=== PATIENT | male | born 1960 | race Caucasian/White ===

== ENCOUNTER 2019-01-19 13:03 | Inpatient (IN) | payer SELFPAY ==
[~2019-01-19] VITALS: Ht 170.2 cm; Wt 68.9 kg
[2019-01-19 13:57] LABS: BASO % 0 % (0-3); EOS % 0 % (0-3); HEMATOCRIT 41.1 % (39.0-53.0); HEMOGLOBIN 14.4 g/dL (13.0-17.5); LYMPH # 1.3 x10^3/uL (1.0-4.8); LYMPH % 8 % (24-48); MEAN CORPUSCULAR HEMOGLOBIN 37 pg (25-35); MEAN CORPUSCULAR HGB CONC 35 g/dL (31-37); MEAN CORPUSCULAR VOLUME 104 fL (79-100); MONO # 1.3 x10^3/uL (0.0-1.1); MONO % 7 % (0-9); NEUT % 85 % (31-73); PLATELET COUNT 186 x10^3/uL (140-400); RED BLOOD COUNT 3.95 x10^6/uL (4.30-5.70); RED CELL DISTRIBUTION WIDTH 12.5 % (11.5-14.5); WHITE BLOOD COUNT 17.7 x10^3/uL (4.0-11.0)
[2019-01-19] MEDS ORDERED: VANCOMYCIN 1.75 GM in IV NORMAL SALINE 500ML BAG 500 ML IV ONE (14:00)
[2019-01-19 14:06] LABS: CALCIUM 9.5 mg/dL (8.5-10.1); CREATININE 1.1 mg/dL (0.7-1.3); GFR 68.3
--- NOTE | 2019-01-19 14:06 | RAD ---
Examination: ELBOW LEFT 3V History: Pain Comparison/Correlation: None Findings: Three-view x-ray examination left elbow was performed in portable technique. Spurring about the elbow is evident. No fat-pad displacement to suggest joint effusion. No occult fracture identified. Joint spaces are adequate. Impression: No acute process. Electronically signed by: Boogie Solano MD (01/19/2019 2:03 PM) [facility]
--- NOTE | 2019-01-19 14:08 | PHYS DOC ---
Past Medical History Past Medical History: COPD Past Surgical History: Tonsillectomy Additional Past Surgical Histo: cyst removed from neck Additional Information: 2 ppd Alcohol Use: Heavy Additional Information: 3-4 beers every night Drug Use: None Adult General Chief Complaint Chief Complaint: UPPER EXTREMITY SWELLING HPI HPI 58-year-old male presenting the emergency department today with cellulitis transferred here by urgent care. This all started over the last 4 days. He's had worsening swelling over the past 1-2 days. Urgent care center here for IV antibiotics. The patient has swelling but denies having severe pain. He reports mild pain. He had a abrasion on the medial portion of his left arm which has since been draining with associated redness and swelling of the arm. Review of systems is negative for chest pain shortness of breath vomiting headache. All other review of systems is negative. ED course: 58-year-old male presenting the emergency department today with left upper shoulder cellulitis. No crepitus to palpation. X-ray of the elbow obtained and reviewed by myself shows no obvious signs of deeper joint or bone infection. Blood work obtained along with an order for IV vancomycin. White blood cell count is elevated. I spoke with Dr. alan accepts patient for admission. Current Medications Current Medications Current Medications Medications (Trade) Dose Ordered Sig/Alexis Start Time Stop Time Status Last Admin Dose Admin Vancomycin HCl (Vanco Per Pharmacy) 1 each PRN DAILY PRN 01/19/19 14:00 01/19/19 15:35 1 EACH Vancomycin HCl 1.75 gm/Sodium Chloride 500 ml @ 250 mls/hr 1X ONCE 01/19/19 14:00 01/19/19 15:59 DC 01/19/19 14:13 250 MLS/HR Allergies Allergies Allergies Coded Allergies Type Severity Reaction Last Updated Verified Penicillins Allergy Intermediate hives 01/20/16 Yes Physical Exam Physical Exam Constitutional: Well developed, well nourished, no acute distress, non-toxic appearance. HENT: Normocephalic, atraumatic, bilateral external ears normal, oropharynx moist, no oral exudates, nose normal. [] Eyes: PERRLA, EOMI, conjunctiva normal, no discharge. [] Neck: Normal range of motion, no tenderness, supple, no stridor. Cardiovascular:Heart rate regular rhythm, no murmur [] Lungs & Thorax: Bilateral breath sounds clear to auscultation [] Abdomen: Bowel sounds normal, soft, no tenderness, no masses, no pulsatile masses. Skin: Warm, dry, no erythema, no rash. [] Back: No tenderness, no CVA tenderness. [] Extremities: The patient's left upper extremity is mildly tender palpation. There is a localized swelling of the medial aspect of the left distal humerus area with active drainage of purulent fluid. There is associated cellulitis throughout the arm without crepitus to palpation. Minimal pain with passive range of motion of the joint. Palpable pulse distally with 2 second cap refill. Otherwise remainder of extremities are neurovascularly intact without any abnormalities. Neurologic: Alert and oriented X 3, normal motor function, normal sensory function, no focal deficits noted. [] Psychologic: Affect normal, judgement normal, mood normal. [] Current Patient Data Vital Signs Vital Signs Date Time Temp Pulse Resp B/P (MAP) Pulse Ox O2 Delivery O2 Flow Rate FiO2 01/19/19 14:17 97 20 146/89 (108) 96 Room Air 01/19/19 13:21 98.4 98.4 Lab Values Laboratory Tests Test 01/19/19 13:47 White Blood Count 17.7 x10^3/uL (4.0-11.0) H Red Blood Count 3.95 x10^6/uL (4.30-5.70) L Hemoglobin 14.4 g/dL (13.0-17.5) Hematocrit 41.1 % (39.0-53.0) Mean Corpuscular Volume 104 fL (79-100) H Mean Corpuscular Hemoglobin 37 pg (25-35) H Mean Corpuscular Hemoglobin Concent 35 g/dL (31-37) Red Cell Distribution Width 12.5 % (11.5-14.5) Platelet Count 186 x10^3/uL (140-400) Neutrophils (%) (Auto) 85 % (31-73) H Lymphocytes (%) (Auto) 8 % (24-48) L Monocytes (%) (Auto) 7 % (0-9) Eosinophils (%) (Auto) 0 % (0-3) Basophils (%) (Auto) 0 % (0-3) Neutrophils # (Auto) 15.0 x10^3/uL (1.8-7.7) H Lymphocytes # (Auto) 1.3 x10^3/uL (1.0-4.8) Monocytes # (Auto) 1.3 x10^3/uL (0.0-1.1) H Eosinophils # (Auto) 0.0 x10^3/uL (0.0-0.7) Basophils # (Auto) 0.0 x10^3/uL (0.0-0.2) Segmented Neutrophils % 70 % (35-66) H Band Neutrophils % 11 % (0-9) H Lymphocytes % 11 % (24-48) L Monocytes % 7 % (0-10) Basophils % 1 % (0-3) Toxic Granulation Slight Platelet Estimate Adequate (ADEQUATE) Sodium Level 136 mmol/L (136-145) Potassium Level 4.0 mmol/L (3.5-5.1) Chloride Level 101 mmol/L (98-107) Carbon Dioxide Level 25 mmol/L (21-32) Anion Gap 10 (6-14) Blood Urea Nitrogen 16 mg/dL (8-26) Creatinine 1.1 mg/dL (0.7-1.3) Estimated GFR (Cockcroft-Gault) 68.3 BUN/Creatinine Ratio 15 (6-20) Glucose Level 102 mg/dL (70-99) H Calcium Level 9.5 mg/dL (8.5-10.1) Total Bilirubin 1.7 mg/dL (0.2-1.0) H Aspartate Amino Transferase (AST) 15 U/L (15-37) Alanine Aminotransferase (ALT) 14 U/L (16-63) L Alkaline Phosphatase 88 U/L (46-116) Total Protein 7.1 g/dL (6.4-8.2) Albumin 3.4 g/dL (3.4-5.0) Albumin/Globulin Ratio 0.9 (1.0-1.7) L Laboratory Tests 01/19/19 13:47 Laboratory Tests 01/19/19 13:47 EKG EKG [] Radiology/Procedures Radiology/Procedures [] Course & Med Decision Making Course & Med Decision Making Pertinent Labs and Imaging studies reviewed. (See chart for details) [] Dragon Disclaimer Dragon Disclaimer This electronic medical record was generated, in whole or in part, using a voice recognition dictation system. Departure Departure Impression: Primary Impression: Cellulitis of arm, left Disposition: ADMITTED INPATIENT Condition: STABLE Referrals: NO PCP (PCP) Scripts No Active Prescriptions or Reported Meds ZEINAB BURROWS MD Jan 19, 2019 14:08
[2019-01-19 14:11] LABS: ALBUMIN 3.4 g/dL (3.4-5.0); ALBUMIN/GLOBULIN RATIO 0.9 (1.0-1.7); TOTAL BILIRUBIN 1.7 mg/dL (0.2-1.0); TOTAL PROTEIN 7.1 g/dL (6.4-8.2)
[2019-01-19 15:33] LABS: % BANDS 11 % (0-9); % BASOS 1 % (0-3); % LYMPHS 11 % (24-48); % MONOS 7 % (0-10); % SEGS 70 % (35-66)
[2019-01-19 15:35] LABS: PLT ESTIMATE ADEQUATE (ADEQUATE); TOXIC GRANULATION SLIGHT
[2019-01-19] MEDS: VANCOMYCIN PER PHARMACY MC PRN (15:35)
--- NOTE | 2019-01-19 15:38 | NUR ---
Pharmacy Vancomycin Dosing Note S:Consulted to monitor and dose vancomycin started 01/19/19. O:ABIDA DE LEON is a 58 year old M with Cellulitis Height: 5 feet, 7 inches Weight: 70.3 kg [place] Body Weight: 66.10 Adjusted Body Weight: 67.78 Dosing Weight: Actual Other Antibiotics: none LABS: Last BUN: 16 Last Creatinine: 1.1 Creatinine Clearance: 68 mL/min Last WBC: 17.7 Last Procalcitonin: Tmax (past 24 hours): 98.4 Last dose given 01/19/19 at 1400 Vancomycin Dosing: Loading Dose: 1750 mg x1 Dosing Weight: Actual Target Trough: 10-20 A: Based on: weight and renal function P: 1. Begin Vancomycin 1000 mg IV q12h 2. Follow up Trough level on 01/21/19 at 0430 3. Pharmacy will continue to monitor, follow and adjust therapy as needed. Sandra Barry RPH, 01/19/19 [id number]
[2019-01-19] MEDS ORDERED: PIP/TAZO PER PHARMACY MC PRN (17:00)
[2019-01-19] MEDS ORDERED: NICOTINE POLACRILEX 2MG GUM PACKAGE of 12. BC PRN (17:00)
[2019-01-19] MEDS ORDERED: NICOTINE 21MG PATCH. TD PRN (17:00)
[2019-01-19] MEDS ORDERED: AZTREONAM IV Push 2 GM VIAL. IVP SCH (17:15)
[2019-01-19] MEDS: AZTREONAM IV Push 1 GM VIAL. IVP SCH (18:14)
[2019-01-19 19:00] VITALS: BP 141/78
--- NOTE | 2019-01-19 19:10 | PDOC1 ---
History and Physical Date of Admission Date of Admission DATE: 01/19/19 TIME: 19:07 History of Present Illness History of Present Illness Mr. Cary is a 58-year-old male admit for left arm pain and swelling, started over the last 4 days. He's had worsening swelling over the past 2 days. Hew hammad to an urgent care today and was sent here. The patient has swelling - but is having severe pain. . He had a abrasion on the medial portion of his left arm he says he just had a "small bump" on the inside of the elbow 4 days ago, when he woke up, and didn't think much of it, but has gotten worse every day. Now, the area has been draining with associated redness and swelling of the ar m. Past Medical History Cardiovascular: No pertinent hx Pulmonary: COPD GI: No pertinent hx Heme/Onc: No pertinent hx Hepatobiliary: No pertinent hx Psych: No pertinent hx Musculoskeletal: Osteoarthritis Rheumatologic: No pertinent hx Infectious disease: No pertinent hx Renal/: No pertinent hx Endocrine: No pertinent hx Past Surgical History Past Surgical History: Tonsillectomy, Other Family History Family History: Heart Disease Social History Smoke: 2 packs per day ALCOHOL: none Drugs: None Current Problem List Problem List Problems Medical Problems: (1) Cellulitis of arm, left Status: Acute Current Medications Current Medications Current Medications Vancomycin HCl (Vanco Per Pharmacy) 1 each PRN DAILY PRN MC SEE COMMENTS Last administered on 01/19/19at 15:35; Start 01/19/19 at 14:00 Vancomycin HCl 1.75 gm/Sodium Chloride 500 ml @ 250 mls/hr 1X ONCE IV Last administered on 01/19/19at 14:13; Start 01/19/19 at 14:00; Stop 01/19/19 at 15:59; Status DC Vancomycin HCl 1 gm/Sodium Chloride 250 ml @ 250 mls/hr Q12H IV ; Start 01/20/19 at 05:00 Vancomycin HCl (Vancomycin Trough Level) 1 each 1X ONCE MC ; Start 01/21/19 at 04:30; Stop 01/21/19 at 04:31 Fentanyl Citrate (Fentanyl 2ml Vial) 50 mcg PRN Q2HR PRN IVP PAIN; Start 01/19/19 at 16:30 Oxycodone/ Acetaminophen (Percocet 5/325) 1 tab PRN Q4HRS PRN PO PAIN; Start 01/19/19 at 16:30 Nicotine (Nicoderm Cq 21mg) 1 patch PRN DAILY PRN TD SMOKING CESSATION; Start 01/19/19 at 17:00 Nicotine Polacrilex (Nicorette Gum) 1 each PRN Q1HR PRN BC SMOKING CESSATION; Start 01/19/19 at 17:00 Zolpidem Tartrate (Ambien) 5 mg PRN QHS PRN PO INSOMNIA, MAY REPEAT IN 1HR; Start 01/19/19 at 17:00 Piperacillin Sod/ Tazobactam Sod (Zosyn Per Pharmacy) 1 each PRN DAILY PRN MC SEE COMMENTS; Start 01/19/19 at 17:00; Stop 01/19/19 at 17:10; Status DC Aztreonam (Azactam) 2 gm Q8HRS IVP ; Start 01/19/19 at 17:15; Status UNV Aztreonam (Azactam) 1 gm Q8HRS IVP Last administered on 01/19/19at 18:14; Start 01/19/19 at 18:00 Active Scripts Active No Active Prescriptions or Reported Medications Allergies Allergies: Coded Allergies: Penicillins (Verified Allergy, Intermediate, hives, 01/20/16) ROS General: YES: Chills, Fatigue; No: Night Sweats, Malaise, Appetite, Other PSYCHOLOGICAL ROS: YES: Irritablity, Sleep disturbances; No: Anxiety, Behavioral Disorder, Concentration difficultie, Decreased libido, Depression, Disorientation, Hallucinations, Hostility, Memory difficulties, Mood Swings, Obsessive thoughts, Other Eyes: Yes Uses glasses; No Blurry vision, No Decreased vision, No Double vision, No Dry eyes, No Excessive tearing, No Eye Pain, No Itchy Eyes, No Loss of vision, No Photophobia, No Scotomata, No Uses contacts, No Other Respiratory: No: Cough, Hemoptysis, Orthopnea, Pleuritic Pain, Shortness of breath, SOB with excertion, Sputum Changes, Stridor, Tachypnea, Wheezing, Other Cardiovascular: No Chest Pain, No Palpitations, No Orthopnea, No Paroxysmal Noc. Dyspnea, No Edema, No Lt Headedness, No Other Gastrointestinal: Yes Nausea; No Vomiting, No Abdominal Pain, No Diarrhea, No Constipation, No Melena, No Hematochezia, No Other Genitourinary: No Dysuria, No Frequency, No Incontinence, No Hematuria, No Retention, No Discharge, No Urgency, No Pain, No Flank Pain, No Other, No , No , No , No , No , No , No Musculoskeletal: Yes Joint Swelling, Yes Pain In: (arm); No Gait Disturbance, No Joint Pain, No Joint Stiffness, No Muscle Pain, No Muscular Weakness, No Swelling In:, No Other Neurological: No Behavorial Changes, No Bowel/Bladder ControlChng, No Confusion, No Dizziness, No Gait Disturbance, No Headaches, No Impaired Coord/balance, No Memory Loss, No Numbness/Tingling, No Seizures, No Speech Problems, No Tremors, No Visual Changes, No Weakness, No Other Skin: Yes Dry Skin; No Eczema, No Hair Changes, No Lumps, No Mole Changes, No Mottling, No Nail Changes, No Pruritus, No Rash, No Skin Lesion Changes, No Other, No Acne Physical Exam General: Alert, Oriented X3, mild distress, moderate distress HEENT: Atraumatic, PERRLA, EOMI Lungs: Clear to auscultation, Normal air movement Heart: S1S2, no gallops, no murmurs Extremities: No cyanosis, No edema Skin: Other (thickened red skin to left arm, axillae to wrist, some drainage near elbow) Neuro: Normal gait, Normal tone, Sensation intact Vitals Vitals Vital Signs Date Time Temp Pulse Resp B/P (MAP) Pulse Ox O2 Delivery O2 Flow Rate FiO2 01/19/19 15:07 88 20 137/84 (101) 18 Room Air 01/19/19 13:21 98.4 98.4 Labs Labs Laboratory Tests Test 01/19/19 13:47 White Blood Count 17.7 x10^3/uL (4.0-11.0) Red Blood Count 3.95 x10^6/uL (4.30-5.70) Hemoglobin 14.4 g/dL (13.0-17.5) Hematocrit 41.1 % (39.0-53.0) Mean Corpuscular Volume 104 fL (79-100) Mean Corpuscular Hemoglobin 37 pg (25-35) Mean Corpuscular Hemoglobin Concent 35 g/dL (31-37) Red Cell Distribution Width 12.5 % (11.5-14.5) Platelet Count 186 x10^3/uL (140-400) Neutrophils (%) (Auto) 85 % (31-73) Lymphocytes (%) (Auto) 8 % (24-48) Monocytes (%) (Auto) 7 % (0-9) Eosinophils (%) (Auto) 0 % (0-3) Basophils (%) (Auto) 0 % (0-3) Neutrophils # (Auto) 15.0 x10^3/uL (1.8-7.7) Lymphocytes # (Auto) 1.3 x10^3/uL (1.0-4.8) Monocytes # (Auto) 1.3 x10^3/uL (0.0-1.1) Eosinophils # (Auto) 0.0 x10^3/uL (0.0-0.7) Basophils # (Auto) 0.0 x10^3/uL (0.0-0.2) Segmented Neutrophils % 70 % (35-66) Band Neutrophils % 11 % (0-9) Lymphocytes % 11 % (24-48) Monocytes % 7 % (0-10) Basophils % 1 % (0-3) Toxic Granulation Slight Platelet Estimate Adequate (ADEQUATE) Sodium Level 136 mmol/L (136-145) Potassium Level 4.0 mmol/L (3.5-5.1) Chloride Level 101 mmol/L (98-107) Carbon Dioxide Level 25 mmol/L (21-32) Anion Gap 10 (6-14) Blood Urea Nitrogen 16 mg/dL (8-26) Creatinine 1.1 mg/dL (0.7-1.3) Estimated GFR (Cockcroft-Gault) 68.3 BUN/Creatinine Ratio 15 (6-20) Glucose Level 102 mg/dL (70-99) Calcium Level 9.5 mg/dL (8.5-10.1) Total Bilirubin 1.7 mg/dL (0.2-1.0) Aspartate Amino Transf (AST/SGOT) 15 U/L (15-37) Alanine Aminotransferase (ALT/SGPT) 14 U/L (16-63) Alkaline Phosphatase 88 U/L (46-116) Total Protein 7.1 g/dL (6.4-8.2) Albumin 3.4 g/dL (3.4-5.0) Albumin/Globulin Ratio 0.9 (1.0-1.7) Laboratory Tests Test 01/19/19 13:47 White Blood Count 17.7 x10^3/uL (4.0-11.0) Red Blood Count 3.95 x10^6/uL (4.30-5.70) Hemoglobin 14.4 g/dL (13.0-17.5) Hematocrit 41.1 % (39.0-53.0) Mean Corpuscular Volume 104 fL (79-100) Mean Corpuscular Hemoglobin 37 pg (25-35) Mean Corpuscular Hemoglobin Concent 35 g/dL (31-37) Red Cell Distribution Width 12.5 % (11.5-14.5) Platelet Count 186 x10^3/uL (140-400) Neutrophils (%) (Auto) 85 % (31-73) Lymphocytes (%) (Auto) 8 % (24-48) Monocytes (%) (Auto) 7 % (0-9) Eosinophils (%) (Auto) 0 % (0-3) Basophils (%) (Auto) 0 % (0-3) Neutrophils # (Auto) 15.0 x10^3/uL (1.8-7.7) Lymphocytes # (Auto) 1.3 x10^3/uL (1.0-4.8) Monocytes # (Auto) 1.3 x10^3/uL (0.0-1.1) Eosinophils # (Auto) 0.0 x10^3/uL (0.0-0.7) Basophils # (Auto) 0.0 x10^3/uL (0.0-0.2) Segmented Neutrophils % 70 % (35-66) Band Neutrophils % 11 % (0-9) Lymphocytes % 11 % (24-48) Monocytes % 7 % (0-10) Basophils % 1 % (0-3) Toxic Granulation Slight Platelet Estimate Adequate (ADEQUATE) Sodium Level 136 mmol/L (136-145) Potassium Level 4.0 mmol/L (3.5-5.1) Chloride Level 101 mmol/L (98-107) Carbon Dioxide Level 25 mmol/L (21-32) Anion Gap 10 (6-14) Blood Urea Nitrogen 16 mg/dL (8-26) Creatinine 1.1 mg/dL (0.7-1.3) Estimated GFR (Cockcroft-Gault) 68.3 BUN/Creatinine Ratio 15 (6-20) Glucose Level 102 mg/dL (70-99) Calcium Level 9.5 mg/dL (8.5-10.1) Total Bilirubin 1.7 mg/dL (0.2-1.0) Aspartate Amino Transf (AST/SGOT) 15 U/L (15-37) Alanine Aminotransferase (ALT/SGPT) 14 U/L (16-63) Alkaline Phosphatase 88 U/L (46-116) Total Protein 7.1 g/dL (6.4-8.2) Albumin 3.4 g/dL (3.4-5.0) Albumin/Globulin Ratio 0.9 (1.0-1.7) VTE Prophylaxis Ordered VTE Prophylaxis Devices: Yes VTE Pharmacological Prophylaxi: No Assessment/Plan Assessment/Plan sepsis BETTYE cellulitis, w. small draining abcess,, IV broad abx, PCN allergy, will do vanc.aztrenam consult ortho tobacco use disorder COPD admit TYSON PERALTA MD Jan 19, 2019 19:10
[2019-01-19] MEDS: ZOLPIDEM 5 MG TABLET. PO PRN (21:08)
[2019-01-19] MEDS: oxyCODONE/APAP 5/325 1 TAB TABLET PO PRN (21:09)
[2019-01-19 23:00] VITALS: BP 109/59
[2019-01-20 03:00] VITALS: BP 105/73
[2019-01-20] MEDS: VANCOMYCIN 1 GM in IV NORMAL SALINE 250ML 250 ML IV SCH ×2 (05:05→16:55)
[2019-01-20 05:29] LABS: BASO % 0 % (0-3); EOS # 0.2 x10^3/uL (0.0-0.7); EOS % 1 % (0-3); HEMATOCRIT 37.5 % (39.0-53.0); HEMOGLOBIN 13.2 g/dL (13.0-17.5); LYMPH # 1.7 x10^3/uL (1.0-4.8); LYMPH % 10 % (24-48); MEAN CORPUSCULAR HEMOGLOBIN 37 pg (25-35); MEAN CORPUSCULAR HGB CONC 35 g/dL (31-37); MEAN CORPUSCULAR VOLUME 104 fL (79-100); MONO # 1.3 x10^3/uL (0.0-1.1); MONO % 8 % (0-9); NEUT # 13.7 x10^3/uL (1.8-7.7); NEUT % 81 % (31-73); PLATELET COUNT 176 x10^3/uL (140-400); RED CELL DISTRIBUTION WIDTH 12.3 % (11.5-14.5); WHITE BLOOD COUNT 16.9 x10^3/uL (4.0-11.0)
[2019-01-20 06:05] LABS: ALBUMIN 2.9 g/dL (3.4-5.0); ALBUMIN/GLOBULIN RATIO 0.9 (1.0-1.7); CALCIUM 8.8 mg/dL (8.5-10.1); CREATININE 0.9 mg/dL (0.7-1.3); GFR 86.1; POTASSIUM 4.1 mmol/L (3.5-5.1)
[2019-01-20 07:00] VITALS: BP 123/71
[2019-01-20] MEDS: AZTREONAM IV Push 1 GM VIAL. IVP SCH ×3 (07:24→21:40)
[2019-01-20] MEDS: VITAMIN B12,B9,B6 COMPLEX 1 TABLET. PO SCH (08:30)
--- NOTE | 2019-01-20 08:34 | PDOC ---
PROGRESS NOTES Chief Complaint Chief Complaint Left elbow cellulitis - elevate extremity, tight wrap. Ortho to OR likely tomorrow. Cont empiric antibiotics Sepsis - 2/2 cellulitis, given empiric fluids and antibiotics - aztreonam and vancomycin. Check MRSA nares COPD - stable,nebs offered Smoker - nicotine patch offered Macrocytosis - heavy ETOH use, will place on CIWA 36 minute patient exam, chart review and wound care. History of Present Illness History of Present Illness Mr. Cary is a 58-year-old male w/ PMHx COPD, smoker who p/w left arm pain and swelling, started over the last 4 days prior to admit. Sent to ED from urgent care for drainage, redness, swelling, warmth, and pain of left elbow. Was septic on admission Feeling a bit shaky and left elbow pain. States he drinks 4-5 beers usually and has been cutting back. Notes he has had withdrawal symptoms before. No SOB or CP Vitals Vitals Vital Signs Date Time Temp Pulse Resp B/P (MAP) Pulse Ox O2 Delivery O2 Flow Rate FiO2 01/20/19 03:00 100.1 98 20 105/73 (84) 95 Room Air 100.1 Physical Exam General: Alert, Oriented X3, mild distress, moderate distress Extremities: No cyanosis, No edema Skin: Other (thickened red skin to left arm, axillae to wrist, some drainage near elbow) Labs LABS Laboratory Tests Test 01/19/19 13:47 01/20/19 04:40 White Blood Count 17.7 x10^3/uL (4.0-11.0) 16.9 x10^3/uL (4.0-11.0) Red Blood Count 3.95 x10^6/uL (4.30-5.70) 3.60 x10^6/uL (4.30-5.70) Hemoglobin 14.4 g/dL (13.0-17.5) 13.2 g/dL (13.0-17.5) Hematocrit 41.1 % (39.0-53.0) 37.5 % (39.0-53.0) Mean Corpuscular Volume 104 fL (79-100) 104 fL (79-100) Mean Corpuscular Hemoglobin 37 pg (25-35) 37 pg (25-35) Mean Corpuscular Hemoglobin Concent 35 g/dL (31-37) 35 g/dL (31-37) Red Cell Distribution Width 12.5 % (11.5-14.5) 12.3 % (11.5-14.5) Platelet Count 186 x10^3/uL (140-400) 176 x10^3/uL (140-400) Neutrophils (%) (Auto) 85 % (31-73) 81 % (31-73) Lymphocytes (%) (Auto) 8 % (24-48) 10 % (24-48) Monocytes (%) (Auto) 7 % (0-9) 8 % (0-9) Eosinophils (%) (Auto) 0 % (0-3) 1 % (0-3) Basophils (%) (Auto) 0 % (0-3) 0 % (0-3) Neutrophils # (Auto) 15.0 x10^3/uL (1.8-7.7) 13.7 x10^3/uL (1.8-7.7) Lymphocytes # (Auto) 1.3 x10^3/uL (1.0-4.8) 1.7 x10^3/uL (1.0-4.8) Monocytes # (Auto) 1.3 x10^3/uL (0.0-1.1) 1.3 x10^3/uL (0.0-1.1) Eosinophils # (Auto) 0.0 x10^3/uL (0.0-0.7) 0.2 x10^3/uL (0.0-0.7) Basophils # (Auto) 0.0 x10^3/uL (0.0-0.2) 0.0 x10^3/uL (0.0-0.2) Segmented Neutrophils % 70 % (35-66) Band Neutrophils % 11 % (0-9) Lymphocytes % 11 % (24-48) Monocytes % 7 % (0-10) Basophils % 1 % (0-3) Toxic Granulation Slight Platelet Estimate Adequate (ADEQUATE) Sodium Level 136 mmol/L (136-145) 139 mmol/L (136-145) Potassium Level 4.0 mmol/L (3.5-5.1) 4.1 mmol/L (3.5-5.1) Chloride Level 101 mmol/L (98-107) 103 mmol/L (98-107) Carbon Dioxide Level 25 mmol/L (21-32) 24 mmol/L (21-32) Anion Gap 10 (6-14) 12 (6-14) Blood Urea Nitrogen 16 mg/dL (8-26) 13 mg/dL (8-26) Creatinine 1.1 mg/dL (0.7-1.3) 0.9 mg/dL (0.7-1.3) Estimated GFR (Cockcroft-Gault) 68.3 86.1 BUN/Creatinine Ratio 15 (6-20) 14 (6-20) Glucose Level 102 mg/dL (70-99) 113 mg/dL (70-99) Calcium Level 9.5 mg/dL (8.5-10.1) 8.8 mg/dL (8.5-10.1) Total Bilirubin 1.7 mg/dL (0.2-1.0) 1.0 mg/dL (0.2-1.0) Aspartate Amino Transf (AST/SGOT) 15 U/L (15-37) 14 U/L (15-37) Alanine Aminotransferase (ALT/SGPT) 14 U/L (16-63) 13 U/L (16-63) Alkaline Phosphatase 88 U/L (46-116) 94 U/L (46-116) Total Protein 7.1 g/dL (6.4-8.2) 6.0 g/dL (6.4-8.2) Albumin 3.4 g/dL (3.4-5.0) 2.9 g/dL (3.4-5.0) Albumin/Globulin Ratio 0.9 (1.0-1.7) 0.9 (1.0-1.7) Assessment and Plan Assessmemt and Plan Problems Medical Problems: (1) Cellulitis of arm, left Status: Acute Comment Review of Relevant I have reviewed the following items pineda (where applicable) has been applied. Labs Laboratory Tests Test 01/19/19 13:47 01/20/19 04:40 White Blood Count 17.7 x10^3/uL (4.0-11.0) 16.9 x10^3/uL (4.0-11.0) Red Blood Count 3.95 x10^6/uL (4.30-5.70) 3.60 x10^6/uL (4.30-5.70) Hemoglobin 14.4 g/dL (13.0-17.5) 13.2 g/dL (13.0-17.5) Hematocrit 41.1 % (39.0-53.0) 37.5 % (39.0-53.0) Mean Corpuscular Volume 104 fL (79-100) 104 fL (79-100) Mean Corpuscular Hemoglobin 37 pg (25-35) 37 pg (25-35) Mean Corpuscular Hemoglobin Concent 35 g/dL (31-37) 35 g/dL (31-37) Red Cell Distribution Width 12.5 % (11.5-14.5) 12.3 % (11.5-14.5) Platelet Count 186 x10^3/uL (140-400) 176 x10^3/uL (140-400) Neutrophils (%) (Auto) 85 % (31-73) 81 % (31-73) Lymphocytes (%) (Auto) 8 % (24-48) 10 % (24-48) Monocytes (%) (Auto) 7 % (0-9) 8 % (0-9) Eosinophils (%) (Auto) 0 % (0-3) 1 % (0-3) Basophils (%) (Auto) 0 % (0-3) 0 % (0-3) Neutrophils # (Auto) 15.0 x10^3/uL (1.8-7.7) 13.7 x10^3/uL (1.8-7.7) Lymphocytes # (Auto) 1.3 x10^3/uL (1.0-4.8) 1.7 x10^3/uL (1.0-4.8) Monocytes # (Auto) 1.3 x10^3/uL (0.0-1.1) 1.3 x10^3/uL (0.0-1.1) Eosinophils # (Auto) 0.0 x10^3/uL (0.0-0.7) 0.2 x10^3/uL (0.0-0.7) Basophils # (Auto) 0.0 x10^3/uL (0.0-0.2) 0.0 x10^3/uL (0.0-0.2) Segmented Neutrophils % 70 % (35-66) Band Neutrophils % 11 % (0-9) Lymphocytes % 11 % (24-48) Monocytes % 7 % (0-10) Basophils % 1 % (0-3) Toxic Granulation Slight Platelet Estimate Adequate (ADEQUATE) Sodium Level 136 mmol/L (136-145) 139 mmol/L (136-145) Potassium Level 4.0 mmol/L (3.5-5.1) 4.1 mmol/L (3.5-5.1) Chloride Level 101 mmol/L (98-107) 103 mmol/L (98-107) Carbon Dioxide Level 25 mmol/L (21-32) 24 mmol/L (21-32) Anion Gap 10 (6-14) 12 (6-14) Blood Urea Nitrogen 16 mg/dL (8-26) 13 mg/dL (8-26) Creatinine 1.1 mg/dL (0.7-1.3) 0.9 mg/dL (0.7-1.3) Estimated GFR (Cockcroft-Gault) 68.3 86.1 BUN/Creatinine Ratio 15 (6-20) 14 (6-20) Glucose Level 102 mg/dL (70-99) 113 mg/dL (70-99) Calcium Level 9.5 mg/dL (8.5-10.1) 8.8 mg/dL (8.5-10.1) Total Bilirubin 1.7 mg/dL (0.2-1.0) 1.0 mg/dL (0.2-1.0) Aspartate Amino Transf (AST/SGOT) 15 U/L (15-37) 14 U/L (15-37) Alanine Aminotransferase (ALT/SGPT) 14 U/L (16-63) 13 U/L (16-63) Alkaline Phosphatase 88 U/L (46-116) 94 U/L (46-116) Total Protein 7.1 g/dL (6.4-8.2) 6.0 g/dL (6.4-8.2) Albumin 3.4 g/dL (3.4-5.0) 2.9 g/dL (3.4-5.0) Albumin/Globulin Ratio 0.9 (1.0-1.7) 0.9 (1.0-1.7) Laboratory Tests Test 01/19/19 13:47 01/20/19 04:40 White Blood Count 17.7 x10^3/uL (4.0-11.0) 16.9 x10^3/uL (4.0-11.0) Red Blood Count 3.95 x10^6/uL (4.30-5.70) 3.60 x10^6/uL (4.30-5.70) Hemoglobin 14.4 g/dL (13.0-17.5) 13.2 g/dL (13.0-17.5) Hematocrit 41.1 % (39.0-53.0) 37.5 % (39.0-53.0) Mean Corpuscular Volume 104 fL (79-100) 104 fL (79-100) Mean Corpuscular Hemoglobin 37 pg (25-35) 37 pg (25-35) Mean Corpuscular Hemoglobin Concent 35 g/dL (31-37) 35 g/dL (31-37) Red Cell Distribution Width 12.5 % (11.5-14.5) 12.3 % (11.5-14.5) Platelet Count 186 x10^3/uL (140-400) 176 x10^3/uL (140-400) Neutrophils (%) (Auto) 85 % (31-73) 81 % (31-73) Lymphocytes (%) (Auto) 8 % (24-48) 10 % (24-48) Monocytes (%) (Auto) 7 % (0-9) 8 % (0-9) Eosinophils (%) (Auto) 0 % (0-3) 1 % (0-3) Basophils (%) (Auto) 0 % (0-3) 0 % (0-3) Neutrophils # (Auto) 15.0 x10^3/uL (1.8-7.7) 13.7 x10^3/uL (1.8-7.7) Lymphocytes # (Auto) 1.3 x10^3/uL (1.0-4.8) 1.7 x10^3/uL (1.0-4.8) Monocytes # (Auto) 1.3 x10^3/uL (0.0-1.1) 1.3 x10^3/uL (0.0-1.1) Eosinophils # (Auto) 0.0 x10^3/uL (0.0-0.7) 0.2 x10^3/uL (0.0-0.7) Basophils # (Auto) 0.0 x10^3/uL (0.0-0.2) 0.0 x10^3/uL (0.0-0.2) Segmented Neutrophils % 70 % (35-66) Band Neutrophils % 11 % (0-9) Lymphocytes % 11 % (24-48) Monocytes % 7 % (0-10) Basophils % 1 % (0-3) Toxic Granulation Slight Platelet Estimate Adequate (ADEQUATE) Sodium Level 136 mmol/L (136-145) 139 mmol/L (136-145) Potassium Level 4.0 mmol/L (3.5-5.1) 4.1 mmol/L (3.5-5.1) Chloride Level 101 mmol/L (98-107) 103 mmol/L (98-107) Carbon Dioxide Level 25 mmol/L (21-32) 24 mmol/L (21-32) Anion Gap 10 (6-14) 12 (6-14) Blood Urea Nitrogen 16 mg/dL (8-26) 13 mg/dL (8-26) Creatinine 1.1 mg/dL (0.7-1.3) 0.9 mg/dL (0.7-1.3) Estimated GFR (Cockcroft-Gault) 68.3 86.1 BUN/Creatinine Ratio 15 (6-20) 14 (6-20) Glucose Level 102 mg/dL (70-99) 113 mg/dL (70-99) Calcium Level 9.5 mg/dL (8.5-10.1) 8.8 mg/dL (8.5-10.1) Total Bilirubin 1.7 mg/dL (0.2-1.0) 1.0 mg/dL (0.2-1.0) Aspartate Amino Transf (AST/SGOT) 15 U/L (15-37) 14 U/L (15-37) Alanine Aminotransferase (ALT/SGPT) 14 U/L (16-63) 13 U/L (16-63) Alkaline Phosphatase 88 U/L (46-116) 94 U/L (46-116) Total Protein 7.1 g/dL (6.4-8.2) 6.0 g/dL (6.4-8.2) Albumin 3.4 g/dL (3.4-5.0) 2.9 g/dL (3.4-5.0) Albumin/Globulin Ratio 0.9 (1.0-1.7) 0.9 (1.0-1.7) Medications Current Medications Vancomycin HCl (Vanco Per Pharmacy) 1 each PRN DAILY PRN MC SEE COMMENTS Last administered on 01/19/19at 15:35; Start 01/19/19 at 14:00 Vancomycin HCl 1.75 gm/Sodium Chloride 500 ml @ 250 mls/hr 1X ONCE IV Last administered on 01/19/19at 14:13; Start 01/19/19 at 14:00; Stop 01/19/19 at 15:59; Status DC Vancomycin HCl 1 gm/Sodium Chloride 250 ml @ 250 mls/hr Q12H IV Last administe red on 01/20/19at 05:05; Start 01/20/19 at 05:00 Vancomycin HCl (Vancomycin Trough Level) 1 each 1X ONCE MC ; Start 01/21/19 at 04:30; Stop 01/21/19 at 04:31 Fentanyl Citrate (Fentanyl 2ml Vial) 50 mcg PRN Q2HR PRN IVP PAIN; Start 01/19/19 at 16:30 Oxycodone/ Acetaminophen (Percocet 5/325) 1 tab PRN Q4HRS PRN PO PAIN Last administered on 01/19/19at 21:09; Start 01/19/19 at 16:30 Nicotine (Nicoderm Cq 21mg) 1 patch PRN DAILY PRN TD SMOKING CESSATION; Start 01/19/19 at 17:00 Nicotine Polacrilex (Nicorette Gum) 1 each PRN Q1HR PRN BC SMOKING CESSATION; Start 01/19/19 at 17:00 Zolpidem Tartrate (Ambien) 5 mg PRN QHS PRN PO INSOMNIA, MAY REPEAT IN 1HR Last administered on 01/19/19at 21:08; Start 01/19/19 at 17:00 Piperacillin Sod/ Tazobactam Sod (Zosyn Per Pharmacy) 1 each PRN DAILY PRN MC SEE COMMENTS; Start 01/19/19 at 17:00; Stop 01/19/19 at 17:10; Status DC Aztreonam (Azactam) 2 gm Q8HRS IVP ; Start 01/19/19 at 17:15; Status UNV Aztreonam (Azactam) 1 gm Q8HRS IVP Last administered on 01/20/19at 07:24; Start 01/19/19 at 18:00 Vitamin B Complex (Folbic Tablet) 1 tab DAILY PO ; Start 01/20/19 at 09:00 Active Scripts Active No Active Prescriptions or Reported Medications Vitals/I & O Vital Sign - Last 24 Hours 01/19/19 01/19/19 01/19/19 01/19/19 13:21 14:17 15:07 19:00 Temp 98.4 98.6 98.4 98.6 Pulse 99 97 88 108 Resp 20 20 20 18 B/P (MAP) 140/74 (96) 146/89 (108) 137/84 (101) 141/78 (99) Pulse Ox 97 96 18 95 O2 Delivery Room Air Room Air Room Air Room Air 01/19/19 01/19/19 01/19/19 01/19/19 20:10 21:09 22:09 23:00 Temp 100.1 100.1 Pulse 97 Resp 20 20 18 B/P (MAP) 109/59 (76) Pulse Ox 92 O2 Delivery Room Air Room Air Room Air Room Air 01/20/19 03:00 Temp 100.1 100.1 Pulse 98 Resp 20 B/P (MAP) 105/73 (84) Pulse Ox 95 O2 Delivery Room Air Intake and Output 01/19/19 01/19/19 01/20/19 15:00 23:00 07:00 Intake Total 200 ml 500 ml Balance 200 ml 500 ml LUIS VIERA MD Jan 20, 2019 08:34
--- NOTE | 2019-01-20 09:17 | PDOC2 ---
CONSULT Date of Consult Date of Consult DATE: 01/20/19 TIME: 09:13 Reason for Consult Reason for Consult: Left elbow abscess Referring Physician Referring Physician: Baljit Identification/Chief Complaint Chief Complaint Left elbow pain Source Source: Patient History of Present Illness Reason for Visit: Patient is a very pleasant 58-year-old gentleman who had a scrape over his posterior left elbow that developed into worsening pain redness swelling and drainage with blistering of his skin over his posterior and posteromedial elbow. He tells me that the swelling and redness started Tuesday. It has gotten worse. He has noticed more swelling into the dorsum of his hand as well. His elbow and hand feels stiff. He does feel a little bit better since being admitted and on pain medicine and IV antibiotics. He denies any fevers or chills. Past Medical History Cardiovascular: No pertinent hx Pulmonary: COPD GI: No pertinent hx Heme/Onc: No pertinent hx Hepatobiliary: No pertinent hx Psych: No pertinent hx Musculoskeletal: Osteoarthritis Rheumatologic: No pertinent hx Infectious disease: No pertinent hx Renal/: No pertinent hx Endocrine: No pertinent hx Past Surgical History Past Surgical History: Tonsillectomy, Other Family History Family History: Heart Disease Social History 2 packs per day ALCOHOL: none Drugs: None Lives: with Family Current Problem List Problem List Problems Medical Problems: (1) Cellulitis of arm, left Status: Acute Current Medications Current Medications Current Medications Vancomycin HCl (Vanco Per Pharmacy) 1 each PRN DAILY PRN MC SEE COMMENTS Last administered on 01/19/19at 15:35; Start 01/19/19 at 14:00 Vancomycin HCl 1.75 gm/Sodium Chloride 500 ml @ 250 mls/hr 1X ONCE IV Last administered on 01/19/19at 14:13; Start 01/19/19 at 14:00; Stop 01/19/19 at 15:59; Status DC Vancomycin HCl 1 gm/Sodium Chloride 250 ml @ 250 mls/hr Q12H IV Last administered on 01/20/19at 05:05; Start 01/20/19 at 05:00 Vancomycin HCl (Vancomycin Trough Level) 1 each 1X ONCE MC ; Start 01/21/19 at 04:30; Stop 01/21/19 at 04:31 Fentanyl Citrate (Fentanyl 2ml Vial) 50 mcg PRN Q2HR PRN IVP PAIN; Start 01/19/19 at 16:30 Oxycodone/ Acetaminophen (Percocet 5/325) 1 tab PRN Q4HRS PRN PO PAIN Last administered on 01/19/19at 21:09; Start 01/19/19 at 16:30 Nicotine (Nicoderm Cq 21mg) 1 patch PRN DAILY PRN TD SMOKING CESSATION; Start 01/19/19 at 17:00 Nicotine Polacrilex (Nicorette Gum) 1 each PRN Q1HR PRN BC SMOKING CESSATION; Start 01/19/19 at 17:00 Zolpidem Tartrate (Ambien) 5 mg PRN QHS PRN PO INSOMNIA, MAY REPEAT IN 1HR Last administered on 01/19/19at 21:08; Start 01/19/19 at 17:00 Piperacillin Sod/ Tazobactam Sod (Zosyn Per Pharmacy) 1 each PRN DAILY PRN MC SEE COMMENTS; Start 01/19/19 at 17:00; Stop 01/19/19 at 17:10; Status DC Aztreonam (Azactam) 2 gm Q8HRS IVP ; Start 01/19/19 at 17:15; Status UNV Aztreonam (Azactam) 1 gm Q8HRS IVP Last administered on 01/20/19at 07:24; Start 01/19/19 at 18:00 Vitamin B Complex (Folbic Tablet) 1 tab DAILY PO Last administered on 01/20/19at 08:30; Start 01/20/19 at 09:00 Active Scripts Active No Active Prescriptions or Reported Medications Allergies Allergies: Coded Allergies: Penicillins (Verified Allergy, Intermediate, hives, 01/20/16) ROS General: No: Chills, Night Sweats, Fatigue, Malaise, Appetite, Other PSYCHOLOGICAL ROS: No: Anxiety, Behavioral Disorder, Concentration difficultie, Decreased libido, Depression, Disorientation, Hallucinations, Hostility, Irritablity, Memory difficulties, Mood Swings, Obsessive thoughts, Physical abuse, Sexual abuse, Sleep disturbances, Suicidal ideation, Other Eyes: No Blurry vision, No Decreased vision, No Double vision, No Dry eyes, No Excessive tearing, No Eye Pain, No Itchy Eyes, No Loss of vision, No Photophobia, No Scotomata, No Uses contacts, No Uses glasses, No Other HEENT: No: Heacaches, Visual Changes, Hearing change, Nasal congestion, Nasal discharge, Oral lesions, Sinus pain, Sore Throat, Epistaxis, Sneezing, Snoring, Tinnitus, Vertigo, Vocal changes, Other ALLERGY AND IMMUNOLOGY: No: Hives, Insect Bite Sensitivity, Itchy/Watery Eyes, Nasal Congestion, Post Nasal Drip, Seasonal Allergies, Other Hematological and Lymphatic: No: Bleeding Problems, Blood Clots, Blood Transfusions, Brusing, Night Sweats, Pallor, Swollen Lymph Nodes, Other ENDOCRINE: No: Breast Changes, Galactorrhea, Hair Pattern Changes, Hot Flashes, Malaise/lethargy, Mood Swings, Palpitations, Polydipsia/polyuria, Skin Changes, Temperature Intolerance, Unexpected Weight Changes, Other Respiratory: No: Cough, Hemoptysis, Orthopnea, Pleuritic Pain, Shortness of b reath, SOB with excertion, Sputum Changes, Stridor, Tachypnea, Wheezing, Other Cardiovascular: No Chest Pain, No Palpitations, No Orthopnea, No Paroxysmal Noc. Dyspnea, No Edema, No Lt Headedness, No Other Gastrointestinal: No Nausea, No Vomiting, No Abdominal Pain, No Diarrhea, No Constipation, No Melena, No Hematochezia, No Other Genitourinary: No Dysuria, No Frequency, No Incontinence, No Hematuria, No Retention, No Discharge, No Urgency, No Pain, No Flank Pain, No Other, No , No , No , No , No , No , No Musculoskeletal: Yes Joint Pain, Yes Joint Stiffness Neurological: No Behavorial Changes, No Bowel/Bladder ControlChng, No Confusion, No Dizziness, No Gait Disturbance, No Headaches, No Impaired Coord/balance, No Memory Loss, No Numbness/Tingling, No Seizures, No Speech Problems, No Tremors, No Visual Changes, No Weakness, No Other Skin: Yes Skin Lesion Changes Physical Exam General: Alert, Oriented X3 HEENT: Atraumatic, EOMI Lungs: Other (respirations are unlabored with symmetric chest rise) Heart: Regular rate Abdomen: Soft, No tenderness Extremities: Normal pulses, Other (he has edema at his left forearm and hand) Neuro: Normal speech, Strength at 5/5 X4 ext, Sensation intact Psych/Mental Status: Mental status NL, Mood NL MUSCULOSKELETAL: Other (examination of his left elbow reveals erythema, fluctuance posteriorly and posteromedially. He does have seropurulent drainage from this area as well.) Vitals VITALS Vital Signs Date Time Temp Pulse Resp B/P (MAP) Pulse Ox O2 Delivery O2 Flow Rate FiO2 01/20/19 03:00 100.1 98 20 105/73 (84) 95 Room Air 100.1 Labs Labs Laboratory Tests Test 01/19/19 13:47 01/20/19 04:40 White Blood Count 17.7 x10^3/uL (4.0-11.0) 16.9 x10^3/uL (4.0-11.0) Red Blood Count 3.95 x10^6/uL (4.30-5.70) 3.60 x10^6/uL (4.30-5.70) Hemoglobin 14.4 g/dL (13.0-17.5) 13.2 g/dL (13.0-17.5) Hematocrit 41.1 % (39.0-53.0) 37.5 % (39.0-53.0) Mean Corpuscular Volume 104 fL (79-100) 104 fL (79-100) Mean Corpuscular Hemoglobin 37 pg (25-35) 37 pg (25-35) Mean Corpuscular Hemoglobin Concent 35 g/dL (31-37) 35 g/dL (31-37) Red Cell Distribution Width 12.5 % (11.5-14.5) 12.3 % (11.5-14.5) Platelet Count 186 x10^3/uL (140-400) 176 x10^3/uL (140-400) Neutrophils (%) (Auto) 85 % (31-73) 81 % (31-73) Lymphocytes (%) (Auto) 8 % (24-48) 10 % (24-48) Monocytes (%) (Auto) 7 % (0-9) 8 % (0-9) Eosinophils (%) (Auto) 0 % (0-3) 1 % (0-3) Basophils (%) (Auto) 0 % (0-3) 0 % (0-3) Neutrophils # (Auto) 15.0 x10^3/uL (1.8-7.7) 13.7 x10^3/uL (1.8-7.7) Lymphocytes # (Auto) 1.3 x10^3/uL (1.0-4.8) 1.7 x10^3/uL (1.0-4.8) Monocytes # (Auto) 1.3 x10^3/uL (0.0-1.1) 1.3 x10^3/uL (0.0-1.1) Eosinophils # (Auto) 0.0 x10^3/uL (0.0-0.7) 0.2 x10^3/uL (0.0-0.7) Basophils # (Auto) 0.0 x10^3/uL (0.0-0.2) 0.0 x10^3/uL (0.0-0.2) Segmented Neutrophils % 70 % (35-66) Band Neutrophils % 11 % (0-9) Lymphocytes % 11 % (24-48) Monocytes % 7 % (0-10) Basophils % 1 % (0-3) Toxic Granulation Slight Platelet Estimate Adequate (ADEQUATE) Sodium Level 136 mmol/L (136-145) 139 mmol/L (136-145) Potassium Level 4.0 mmol/L (3.5-5.1) 4.1 mmol/L (3.5-5.1) Chloride Level 101 mmol/L (98-107) 103 mmol/L (98-107) Carbon Dioxide Level 25 mmol/L (21-32) 24 mmol/L (21-32) Anion Gap 10 (6-14) 12 (6-14) Blood Urea Nitrogen 16 mg/dL (8-26) 13 mg/dL (8-26) Creatinine 1.1 mg/dL (0.7-1.3) 0.9 mg/dL (0.7-1.3) Estimated GFR (Cockcroft-Gault) 68.3 86.1 BUN/Creatinine Ratio 15 (6-20) 14 (6-20) Glucose Level 102 mg/dL (70-99) 113 mg/dL (70-99) Calcium Level 9.5 mg/dL (8.5-10.1) 8.8 mg/dL (8.5-10.1) Total Bilirubin 1.7 mg/dL (0.2-1.0) 1.0 mg/dL (0.2-1.0) Aspartate Amino Transf (AST/SGOT) 15 U/L (15-37) 14 U/L (15-37) Alanine Aminotransferase (ALT/SGPT) 14 U/L (16-63) 13 U/L (16-63) Alkaline Phosphatase 88 U/L (46-116) 94 U/L (46-116) Total Protein 7.1 g/dL (6.4-8.2) 6.0 g/dL (6.4-8.2) Albumin 3.4 g/dL (3.4-5.0) 2.9 g/dL (3.4-5.0) Albumin/Globulin Ratio 0.9 (1.0-1.7) 0.9 (1.0-1.7) Laboratory Tests Test 01/19/19 13:47 01/20/19 04:40 White Blood Count 17.7 x10^3/uL (4.0-11.0) 16.9 x10^3/uL (4.0-11.0) Red Blood Count 3.95 x10^6/uL (4.30-5.70) 3.60 x10^6/uL (4.30-5.70) Hemoglobin 14.4 g/dL (13.0-17.5) 13.2 g/dL (13.0-17.5) Hematocrit 41.1 % (39.0-53.0) 37.5 % (39.0-53.0) Mean Corpuscular Volume 104 fL (79-100) 104 fL (79-100) Mean Corpuscular Hemoglobin 37 pg (25-35) 37 pg (25-35) Mean Corpuscular Hemoglobin Concent 35 g/dL (31-37) 35 g/dL (31-37) Red Cell Distribution Width 12.5 % (11.5-14.5) 12.3 % (11.5-14.5) Platelet Count 186 x10^3/uL (140-400) 176 x10^3/uL (140-400) Neutrophils (%) (Auto) 85 % (31-73) 81 % (31-73) Lymphocytes (%) (Auto) 8 % (24-48) 10 % (24-48) Monocytes (%) (Auto) 7 % (0-9) 8 % (0-9) Eosinophils (%) (Auto) 0 % (0-3) 1 % (0-3) Basophils (%) (Auto) 0 % (0-3) 0 % (0-3) Neutrophils # (Auto) 15.0 x10^3/uL (1.8-7.7) 13.7 x10^3/uL (1.8-7.7) Lymphocytes # (Auto) 1.3 x10^3/uL (1.0-4.8) 1.7 x10^3/uL (1.0-4.8) Monocytes # (Auto) 1.3 x10^3/uL (0.0-1.1) 1.3 x10^3/uL (0.0-1.1) Eosinophils # (Auto) 0.0 x10^3/uL (0.0-0.7) 0.2 x10^3/uL (0.0-0.7) Basophils # (Auto) 0.0 x10^3/uL (0.0-0.2) 0.0 x10^3/uL (0.0-0.2) Segmented Neutrophils % 70 % (35-66) Band Neutrophils % 11 % (0-9) Lymphocytes % 11 % (24-48) Monocytes % 7 % (0-10) Basophils % 1 % (0-3) Toxic Granulation Slight Platelet Estimate Adequate (ADEQUATE) Sodium Level 136 mmol/L (136-145) 139 mmol/L (136-145) Potassium Level 4.0 mmol/L (3.5-5.1) 4.1 mmol/L (3.5-5.1) Chloride Level 101 mmol/L (98-107) 103 mmol/L (98-107) Carbon Dioxide Level 25 mmol/L (21-32) 24 mmol/L (21-32) Anion Gap 10 (6-14) 12 (6-14) Blood Urea Nitrogen 16 mg/dL (8-26) 13 mg/dL (8-26) Creatinine 1.1 mg/dL (0.7-1.3) 0.9 mg/dL (0.7-1.3) Estimated GFR (Cockcroft-Gault) 68.3 86.1 BUN/Creatinine Ratio 15 (6-20) 14 (6-20) Glucose Level 102 mg/dL (70-99) 113 mg/dL (70-99) Calcium Level 9.5 mg/dL (8.5-10.1) 8.8 mg/dL (8.5-10.1) Total Bilirubin 1.7 mg/dL (0.2-1.0) 1.0 mg/dL (0.2-1.0) Aspartate Amino Transf (AST/SGOT) 15 U/L (15-37) 14 U/L (15-37) Alanine Aminotransferase (ALT/SGPT) 14 U/L (16-63) 13 U/L (16-63) Alkaline Phosphatase 88 U/L (46-116) 94 U/L (46-116) Total Protein 7.1 g/dL (6.4-8.2) 6.0 g/dL (6.4-8.2) Albumin 3.4 g/dL (3.4-5.0) 2.9 g/dL (3.4-5.0) Albumin/Globulin Ratio 0.9 (1.0-1.7) 0.9 (1.0-1.7) Images Images Elbow x-rays are interpreted by myself. Report is reviewed as well. No bony abnormalities Assessment/Plan Assessment/Plan Left elbow abscess. Given how extensive this appears, I would like an MRI for preoperative planning and we'll order this. He ate breakfast today, we will plan on surgery tomorrow at 8 AM. LISA SIEGEL II, MD Jan 20, 2019 09:17
[2019-01-20 11:00] VITALS: BP 113/74
[2019-01-20] MEDS ORDERED: cloNIDine HCL 0.1 MG TABLET PO PRN (11:15)
[2019-01-20] MEDS ORDERED: diphenhydrAMINE 50 MG/ML VIAL IVP PRN (11:15)
[2019-01-20] MEDS ORDERED: LORazepam 1 MG TABLET PO PRN (11:15)
--- NOTE | 2019-01-20 12:46 | RAD ---
MRI of the left elbow without contrast 01/20/2019 CLINICAL HISTORY: Left elbow abscess. TECHNIQUE: Unenhanced T1-weighted sagittal and axial and coronal and inversion recovery sagittal and axial and coronal images of the left elbow were obtained. FINDINGS: Comparison is made to radiographs of the left elbow dated 01/19/2019. Diffuse soft tissue swelling and edema is seen throughout the soft tissues of the left elbow. A complex fluid collection is seen within the subcutaneous fat posterior to the olecranon which measures 3.7 x 3.4 x 0.9 cm in craniocaudal, transverse and AP dimensions. This is consistent with the patient's history of an abscess. It is 4 mm deep to the skin surface. A second fluid collection is seen slightly medial and superior to this within the subcutaneous fat which measures 2.8 x 2.4 x 1.7 cm in transverse, craniocaudal and AP dimensions. This is 2 mm deep to the skin surface and would be consistent with patient's history of an abscess. It is difficult to determine if these fluid collections communicate with one another. No additional well-defined fluid collection is seen. There is a moderate sized left elbow joint effusion. Degenerative signal changes are seen within the marrow involving the lateral humeral condyle. No occult fracture is seen. There is no MRI evidence of osteomyelitis involving the left elbow. No ligamentous or tendinous disruption is seen. Moderate degenerative changes are seen involving the left elbow joint. IMPRESSION: Fluid collections are seen within the posterior soft tissues of the left elbow consistent with patient's history of abscesses as discussed above. Electronically signed by: Lev Salcedo MD (01/20/2019 12:43 PM) [facility]
[2019-01-20] MEDS: VANCOMYCIN PER PHARMACY MC PRN (14:15)
[2019-01-20] MEDS: MULTIVIT INFUSN,ADULT 4,VIT K 10 ML, THIAMINE INJ 100 MG, FOLIC ACID INJ 1 MG in IV NOR... IV SCH (14:33)
[2019-01-20 15:00] VITALS: BP 114/63
[2019-01-20 19:30] VITALS: BP 129/71
[2019-01-20] MEDS: ZOLPIDEM 5 MG TABLET. PO PRN (21:39)
[2019-01-20] MEDS: oxyCODONE/APAP 5/325 1 TAB TABLET PO PRN (21:40)
[2019-01-20 23:38] VITALS: BP 122/68
[2019-01-21] VITALS (7 sets, daily range): BP systolic 114–135; BP diastolic 70–82
[2019-01-21 05:34] LABS: CREATININE 0.8 mg/dL (0.7-1.3); GFR 98.6
[2019-01-21 05:41] LABS: VANC TR 6.1 mcg/mL (10.0-20.0)
[2019-01-21] MEDS: VANCOMYCIN PER PHARMACY MC PRN (06:20)
--- NOTE | 2019-01-21 06:22 | NUR ---
Pharmacy Vancomycin Dosing Note S: Consulted to monitor and dose vancomycin started 01/19/19. O: ABIDA DE LEON is a 58 year old M with Cellulitis, . Other Antibiotics: AZTREONAM 1GM IV Q8H LABS: Last BUN: 13 Last Creatinine: 0.9 Creatinine Clearance: 93 mL/min Last WBC: 16.9 Last Procalcitonin: Tmax (past 24 hours): 99.4 Microbiology: I/O: Drug Levels: Last Trough level: 6.1 on 01/21/19 at 0440 Last dose given 01/20/19 at 1655 Vancomycin Dosing: Dosing Weight: Actual Target Trough: 10-20 A: Based on: Trough, Actual Wt and Improved CrCl P: 1. 01/21/19 0600 Increase Vancomycin 1000 mg IV q8h 2. Follow up Trough level on 01/22/19 at 0530 3. Pharmacy will continue to monitor, follow and adjust therapy as needed. YAZMIN RUBIN RPH, 01/21/19 06 Signed: 01/21/19 at 0623 by YAZMIN RUBIN RPH PHA
[2019-01-21] MEDS: VANCOMYCIN 1 GM in IV NORMAL SALINE 250ML 250 ML IV SCH ×3 (06:52→22:35)
[2019-01-21] MEDS: AZTREONAM IV Push 1 GM VIAL. IVP SCH ×3 (06:52→22:35)
[2019-01-21] MEDS ORDERED: PROPOFOL 20 ML IV ONE (07:31)
[2019-01-21] MEDS ORDERED: ONDANSETRON PF 4 MG/2 ML VIAL. ONE (07:31)
[2019-01-21] MEDS ORDERED: DEXAMETHASONE SOD PHOS 4 MG/ML VIAL ONE (07:31)
[2019-01-21] MEDS ORDERED: LIDOCAINE 2% PF 5 ML VIAL. ONE (07:31)
[2019-01-21] MEDS ORDERED: fentaNYL PF VIAL 100 MCG/2 ML VIAL ONE (07:32)
[2019-01-21] MEDS ORDERED: IV RINGERS,LACTATED 1000ML 1,000 ML IV SCH (07:48)
[2019-01-21] MEDS ORDERED: MIDAZOLAM HCL/PF 2 MG/2 ML VIAL. ONE (07:57)
[2019-01-21] MEDS ORDERED: HYDROmorphone 2 MG/ML VIAL IV PRN (08:00)
[2019-01-21] MEDS ORDERED: ONDANSETRON PF 4 MG/2 ML VIAL. IV PRN (08:00)
[2019-01-21] MEDS ORDERED: LIDOCAINE 1% PF 2 ML VIAL. ID PRN (08:00)
[2019-01-21] MEDS ORDERED: PROCHLORPERAZINE 10 MG/2 ML VIAL. IV PRN (08:00)
[2019-01-21] MEDS ORDERED: MORPHINE SULFATE 2 MG/ML VIAL. IV PRN (08:00)
[2019-01-21] MEDS ORDERED: fentaNYL PF VIAL 100 MCG/2 ML VIAL IV PRN ×2 (08:00)
[2019-01-21] MEDS ORDERED: KETOROLAC 30 MG/ML VIAL. ONE (08:36)
--- NOTE | 2019-01-21 09:11 | PDOC4 ---
Operative Note Operative Note Date of procedure: 01/21/2019 Surgeon: Christian Siegel Preoperative diagnosis: Left elbow abscess and wound Postoperative diagnosis: Same Procedure performed: #1 irrigation and debridement skin and subcutaneous tissue, excisional #2 application of wound VAC to wound less than 25 cm Anesthesia: Gen. Tourniquet time: Less than 30 minutes Findings: Gross purulence, the wound and abscess tracked medially and distally from the open wound at his posterior elbow. I placed one strip of VAC sponge from the open wound heading medially and one more on top of this, a total of 2 VAC sponges in the wound Specimens: Tissue and swabs were sent for culture Complications: None Blood loss: 10 mL Reason for procedure: Patient is a very pleasant 58-year-old gentleman who has developed worsening pain redness and open wound and drainage that has been getting progressively worse since Tuesday or Tuesday of last week. I did obtain an MRI to help with preoperative planning. This was reviewed prior surgery. He and I did discuss proceeding with the above surgery and he elected to proceed. Description of procedure: Patient was greeted in the preoperative area by myself for the correct extremity was verified and marked. He was taken to the operative suite and his antibiotics were started as he was brought back. Once in the operative room, he was transferred gently supine to the operating table and secured bed with all pressure points padded. He had successful induction of a general anesthetic. We attached the hand board attachment to the operating room table. Nonsterile tourniquet was applied to the left upper extremity. The left upper extremity was then prepped and draped using Betadine paint in our usual sterile fashion and we conducted our standard preoperative timeout. After this, gravity was allowed to exsanguinate the extremity and tourniquet was insufflated to 250 mmHg. I then began the procedure by using a Rominger and scalpel to debride the edges of the wound, there was abundant necrotic tissue and purulence. I then used a hemostat to explore the wound, the abscess tracked medially and there were 2 loculated areas. This allowed expression of a large amount of purulence and specimens were sent at this time. I then continued excising the necrotic subcutaneous tissue. I then irrigated this out with about 1000 mL of fluid and then inspected the wound again and remove further necrotic and unhealthy-appearing tissue. I then continued my irrigation using a total of about 3000 mL of sterile fluid. After this, there are couple bleeders at the skin edge which were cauterized. I then placed the VAC sponge as noted above, and some Xeroform over some erythematous skin as well. I then sealed this all off, ensuring that had a good seal, I wound VAC. The patient was then awakened from anesthesia and transferred gently supine to the recovery room cart and t aken to PACU in a stable next bit condition. Postoperative plan is to readmitted to the floor under the care of the hospital was. I'll follow along. I have asked wound care to come by to assist with his care as well. All counts were correct 2 prior to leaving the operating room. CHRISTIAN SIEGEL II, MD Jan 21, 2019 09:11
--- NOTE | 2019-01-21 09:13 | PDOC ---
PROGRESS NOTES Chief Complaint Chief Complaint Left elbow cellulitis - elevate extremity, tight wrap. Ortho to OR likely tomorrow. Cont empiric antibiotics Sepsis - 2/2 cellulitis, given empiric fluids and antibiotics - aztreonam and vancomycin. Check MRSA nares COPD - stable,nebs offered Smoker - nicotine patch offered Macrocytosis - heavy ETOH use, will place on CIWA 36 minute patient exam, chart review and wound care. History of Present Illness History of Present Illness Mr. Cary is a 58-year-old male w/ PMHx COPD, smoker who p/w left arm pain and swelling, started over the last 4 days prior to admit. Sent to ED from urgent care for drainage, redness, swelling, warmth, and pain of left elbow. Was septic on admission 01/20: MRI confirmed complex fluid collection in elbow. To OR for I&D with ortho, has wound vac in place. POD #1, feeling a bit shaky and left elbow pain. States he drinks 4-5 beers usually and has been cutting back. Notes he has had withdrawal symptoms before. No SOB or CP. Cultures pending. Vitals Vitals Vital Signs Date Time Temp Pulse Resp B/P (MAP) Pulse Ox O2 Delivery O2 Flow Rate FiO2 01/21/19 07:00 98.1 90 18 114/74 (87) 96 Room Air 98.1 Physical Exam General: Alert, Oriented X3 Heart: Regular rate Abdomen: Soft, No tenderness Extremities: Normal pulses, Other (he has edema at his left forearm and hand) Skin: Other (thickened red skin to left arm, axillae to wrist, some drainage near elbow) Labs LABS Laboratory Tests Test 01/21/19 04:40 Creatinine 0.8 mg/dL (0.7-1.3) Estimated GFR (Cockcroft-Gault) 98.6 Vancomycin Level Trough 6.1 mcg/mL (10.0-20.0) Vancomycin Last Dose Date 01/20/19 Vancomycin Last Dose Time 1700 Assessment and Plan Assessmemt and Plan Problems Medical Problems: (1) Cellulitis of arm, left Status: Acute Comment Review of Relevant I have reviewed the following items pineda (where applicable) has been applied. Labs Laboratory Tests Test 01/19/19 13:47 01/20/19 04:40 01/21/19 04:40 White Blood Count 17.7 x10^3/uL (4.0-11.0) 16.9 x10^3/uL (4.0-11.0) Red Blood Count 3.95 x10^6/uL (4.30-5.70) 3.60 x10^6/uL (4.30-5.70) Hemoglobin 14.4 g/dL (13.0-17.5) 13.2 g/dL (13.0-17.5) Hematocrit 41.1 % (39.0-53.0) 37.5 % (39.0-53.0) Mean Corpuscular Volume 104 fL (79-100) 104 fL (79-100) Mean Corpuscular Hemoglobin 37 pg (25-35) 37 pg (25-35) Mean Corpuscular Hemoglobin Concent 35 g/dL (31-37) 35 g/dL (31-37) Red Cell Distribution Width 12.5 % (11.5-14.5) 12.3 % (11.5-14.5) Platelet Count 186 x10^3/uL (140-400) 176 x10^3/uL (140-400) Neutrophils (%) (Auto) 85 % (31-73) 81 % (31-73) Lymphocytes (%) (Auto) 8 % (24-48) 10 % (24-48) Monocytes (%) (Auto) 7 % (0-9) 8 % (0-9) Eosinophils (%) (Auto) 0 % (0-3) 1 % (0-3) Basophils (%) (Auto) 0 % (0-3) 0 % (0-3) Neutrophils # (Auto) 15.0 x10^3/uL (1.8-7.7) 13.7 x10^3/uL (1.8-7.7) Lymphocytes # (Auto) 1.3 x10^3/uL (1.0-4.8) 1.7 x10^3/uL (1.0-4.8) Monocytes # (Auto) 1.3 x10^3/uL (0.0-1.1) 1.3 x10^3/uL (0.0-1.1) Eosinophils # (Auto) 0.0 x10^3/uL (0.0-0.7) 0.2 x10^3/uL (0.0-0.7) Basophils # (Auto) 0.0 x10^3/uL (0.0-0.2) 0.0 x10^3/uL (0.0-0.2) Segmented Neutrophils % 70 % (35-66) Band Neutrophils % 11 % (0-9) Lymphocytes % 11 % (24-48) Monocytes % 7 % (0-10) Basophils % 1 % (0-3) Toxic Granulation Slight Platelet Estimate Adequate (ADEQUATE) Sodium Level 136 mmol/L (136-145) 139 mmol/L (136-145) Potassium Level 4.0 mmol/L (3.5-5.1) 4.1 mmol/L (3.5-5.1) Chloride Level 101 mmol/L (98-107) 103 mmol/L (98-107) Carbon Dioxide Level 25 mmol/L (21-32) 24 mmol/L (21-32) Anion Gap 10 (6-14) 12 (6-14) Blood Urea Nitrogen 16 mg/dL (8-26) 13 mg/dL (8-26) Creatinine 1.1 mg/dL (0.7-1.3) 0.9 mg/dL (0.7-1.3) 0.8 mg/dL (0.7-1.3) Estimated GFR (Cockcroft-Gault) 68.3 86.1 98.6 BUN/Creatinine Ratio 15 (6-20) 14 (6-20) Glucose Level 102 mg/dL (70-99) 113 mg/dL (70-99) Calcium Level 9.5 mg/dL (8.5-10.1) 8.8 mg/dL (8.5-10.1) Total Bilirubin 1.7 mg/dL (0.2-1.0) 1.0 mg/dL (0.2-1.0) Aspartate Amino Transf (AST/SGOT) 15 U/L (15-37) 14 U/L (15-37) Alanine Aminotransferase (ALT/SGPT) 14 U/L (16-63) 13 U/L (16-63) Alkaline Phosphatase 88 U/L (46-116) 94 U/L (46-116) Total Protein 7.1 g/dL (6.4-8.2) 6.0 g/dL (6.4-8.2) Albumin 3.4 g/dL (3.4-5.0) 2.9 g/dL (3.4-5.0) Albumin/Globulin Ratio 0.9 (1.0-1.7) 0.9 (1.0-1.7) Vancomycin Level Trough 6.1 mcg/mL (10.0-20.0) Vancomycin Last Dose Date 01/20/19 Vancomycin Last Dose Time 1700 Laboratory Tests Test 01/21/19 04:40 Creatinine 0.8 mg/dL (0.7-1.3) Estimated GFR (Cockcroft-Gault) 98.6 Vancomycin Level Trough 6.1 mcg/mL (10.0-20.0) Vancomycin Last Dose Date 01/20/19 Vancomycin Last Dose Time 1700 Medications Current Medications Vancomycin HCl (Vanco Per Pharmacy) 1 each PRN DAILY PRN MC SEE COMMENTS Last administered on 01/21/19at 06:20; Start 01/19/19 at 14:00 Vancomycin HCl 1.75 gm/Sodium Chloride 500 ml @ 250 mls/hr 1X ONCE IV Last administered on 01/19/19at 14:13; Start 01/19/19 at 14:00; Stop 01/19/19 at 15:59; Status DC Vancomycin HCl 1 gm/Sodium Chloride 250 ml @ 250 mls/hr Q12H IV Last administered on 01/20/19at 16:55; Start 01/20/19 at 05:00; Stop 01/21/19 at 06:05; Status DC Vancomycin HCl (Vancomycin Trough Level) 1 each 1X ONCE MC Last administered on 01/21/19at 04:30; Start 01/21/19 at 04:30; Stop 01/21/19 at 04:31; Status DC Fentanyl Citrate (Fentanyl 2ml Vial) 50 mcg PRN Q2HR PRN IVP PAIN; Start 01/19/19 at 16:30 Oxycodone/ Acetaminophen (Percocet 5/325) 1 tab PRN Q4HRS PRN PO PAIN Last administered on 01/20/19at 21:40; Start 01/19/19 at 16:30 Nicotine (Nicoderm Cq 21mg) 1 patch PRN DAILY PRN TD SMOKING CESSATION; Start 01/19/19 at 17:00 Nicotine Polacrilex (Nicorette Gum) 1 each PRN Q1HR PRN BC SMOKING CESSATION; Start 01/19/19 at 17:00 Zolpidem Tartrate (Ambien) 5 mg PRN QHS PRN PO INSOMNIA, MAY REPEAT IN 1HR Last administered on 01/20/19at 21:39; Start 01/19/19 at 17:00 Piperacillin Sod/ Tazobactam Sod (Zosyn Per Pharmacy) 1 each PRN DAILY PRN MC SEE COMMENTS; Start 01/19/19 at 17:00; Stop 01/19/19 at 17:10; Status DC Aztreonam (Azactam) 2 gm Q8HRS IVP ; Start 01/19/19 at 17:15; Status UNV Aztreonam (Azactam) 1 gm Q8HRS IVP Last administered on 01/21/19at 06:52; Start 01/19/19 at 18:00 Vitamin B Complex (Folbic Tablet) 1 tab DAILY PO Last administered on 01/20/19at 08:30; Start 01/20/19 at 09:00 Multivitamins 10 ml/Thiamine HCl 100 mg/Folic Acid 1 mg/Sodium Chloride 1,011.2 ml @ 100 mls/ hr DAILY IV Last administered on 01/20/19at 14:33; Start 01/20/19 at 12:00; Stop 01/24/19 at 19:07 Lorazepam (Ativan) 2 mg PRN Q1HR PRN PO For CIWA 8-14; Start 01/20/19 at 11:15 Lorazepam (Ativan Inj) 1 mg PRN Q1HR PRN IV For CIWA 8-14; Start 01/20/19 at 11:15 Diphenhydramine HCl (Benadryl) 25 mg PRN Q15MIN PRN IVP EPS symptoms 2'Haldol admin; Start 01/20/19 at 11:15 Clonidine HCl (Catapres) 0.1 mg PRN Q1HR PRN PO SBP > 180 or DBP > 100, MRX3; Start 01/20/19 at 11:15 Vancomycin HCl 1 gm/Sodium Chloride 250 ml @ 250 mls/hr Q8H IV Last administered on 01/21/19at 06:52; Start 01/21/19 at 06:00 Vancomycin HCl (Vancomycin Trough Level) 1 each 1X ONCE MC ; Start 01/22/19 at 05:30; Stop 01/22/19 at 05:31 Propofol 20 ml @ As Directed STK-MED ONCE IV ; Start 01/21/19 at 07:31; Stop 01/21/19 at 07:32; Status DC Lidocaine HCl (Lidocaine Pf 2% Vial) 5 ml STK-MED ONCE .ROUTE ; Start 01/21/19 at 07:31; Stop 01/21/19 at 07:32; Status DC Dexamethasone Sodium Phosphate (Decadron) 4 mg STK-MED ONCE .ROUTE ; Start 01/21/19 at 07:31; Stop 01/21/19 at 07:32; Status DC Ondansetron HCl (Zofran) 4 mg STK-MED ONCE .ROUTE ; Start 01/21/19 at 07:31; Stop 01/21/19 at 07:32; Status DC Fentanyl Citrate (Fentanyl 2ml Vial) 100 mcg STK-MED ONCE .ROUTE ; Start 01/21/19 at 07:32; Stop 01/21/19 at 07:32; Status DC Ondansetron HCl (Zofran) 4 mg PRN Q6HRS PRN IV NAUSEA/VOMITING; Start 01/21/19 at 08:00; Stop 01/21/19 at 18:00 Fentanyl Citrate (Fentanyl 2ml Vial) 25 mcg PRN Q5MIN PRN IV MILD PAIN 1-3; Start 01/21/19 at 08:00; Stop 01/21/19 at 18:00 Fentanyl Citrate (Fentanyl 2ml Vial) 50 mcg PRN Q5MIN PRN IV MODERATE TO SEVERE PAIN; Start 01/21/19 at 08:00; Stop 01/21/19 at 18:00 Morphine Sulfate (Morphine Sulfate) 1 mg PRN Q10MIN PRN IV SEVERE PAIN 7-10; Start 01/21/19 at 08:00; Stop 01/21/19 at 18:00 Ringer's Solution 1,000 ml @ 30 mls/hr Q24H IV ; Start 01/21/19 at 07:48; Stop 01/21/19 at 19:47 Lidocaine HCl (Xylocaine-Mpf 1% 2ml Vial) 2 ml PRN 1X PRN ID PRIOR TO IV START; Start 01/21/19 at 08:00; Stop 01/21/19 at 18:00 Hydromorphone HCl (Dilaudid) 0.5 mg PRN Q10MIN PRN IV SEV PAIN, Second choice; Start 01/21/19 at 08:00; Stop 01/21/19 at 18:00 Prochlorperazine Edisylate (Compazine) 5 mg PACU PRN PRN IV NAUSEA, MRX1; Start 01/21/19 at 08:00; Stop 01/21/19 at 18:00 Midazolam HCl (Versed) 2 mg STK-MED ONCE .ROUTE ; Start 01/21/19 at 07:57; Stop 01/21/19 at 07:57; Status DC Ketorolac Tromethamine (Toradol 30mg Vial) 30 mg STK-MED ONCE .ROUTE ; Start 01/21/19 at 08:36; Stop 01/21/19 at 08:36; Status DC Active Scripts Active No Active Prescriptions or Reported Medications Vitals/I & O Vital Sign - Last 24 Hours 01/20/19 01/20/19 01/20/19 01/20/19 11:00 15:00 19:30 20:00 Temp 98.4 98.4 98.6 98.4 98.4 98.6 Pulse 110 109 103 Resp 18 18 18 B/P (MAP) 113/74 (87) 114/63 (80) 129/71 (90) Pulse Ox 92 95 95 O2 Delivery Room Air Room Air Room Air Room Air 01/20/19 01/21/19 01/21/19 23:38 03:35 07:00 Temp 98.5 98.4 98.1 98.5 98.4 98.1 Pulse 100 98 90 Resp 18 18 18 B/P (MAP) 122/68 (86) 124/74 (91) 114/74 (87) Pulse Ox 94 95 96 O2 Delivery Room Air Room Air Room Air Intake and Output 01/20/19 01/20/19 01/21/19 15:00 23:00 07:00 Intake Total 240 ml Balance 240 ml Images MRI left elbow - Diffuse soft tissue swelling and edema is seen throughout the soft tissues of the left elbow. A complex fluid collection is seen within the subcutaneous fat posterior to the olecranon which measures 3.7 x 3.4 x 0.9cm in craniocaudal, transverse and AP dimensions. This is consistent with the patient's history of an abscess. It is 4 mm deep to the skin surface. A second fluid collection is seen slightly medial and superior to this within the subcutaneous fat which measures 2.8 x 2.4 x 1.7 cm in transverse, craniocaudal and AP dimensions. This is 2 mm deep to the skin surface and would be consistent with patient's history of an abscess. It is difficult to determine if these fluid collections communicate with one another. No additional well-defined fluid collection is seen. There is a moderate sized left elbow joint effusion. Degenerative signal changes are seen within the marrow involving the lateral humeral condyle. No occult fracture is seen. There is no MRI evidence of osteomyelitis involving the left elbow. No ligamentous or tendinous disruption is seen. Moderate degenerative changes are seen involving the left elbow joint. IMPRESSION: Fluid collections are seen within the posterior soft tissues of the left elbow consistent with patient's history of abscesses LUIS VIERA MD Jan 21, 2019 09:13
[2019-01-21] MEDS ORDERED: SEVOFLURANE 31 TO 60 MINUTES. IH ONE (09:44)
[2019-01-21] MEDS: VITAMIN B12,B9,B6 COMPLEX 1 TABLET. PO SCH (09:47)
[2019-01-21] MEDS: MULTIVIT INFUSN,ADULT 4,VIT K 10 ML, THIAMINE INJ 100 MG, FOLIC ACID INJ 1 MG in IV NOR... IV SCH (09:48)
[2019-01-21] MEDS: oxyCODONE/APAP 5/325 1 TAB TABLET PO PRN (20:39)
[2019-01-21] MEDS: ZOLPIDEM 5 MG TABLET. PO PRN (22:34)
[2019-01-22 03:44] VITALS: BP 115/66
[2019-01-22 06:18] LABS: CREATININE 0.7 mg/dL (0.7-1.3); VANC TR 12.2 mcg/mL (10.0-20.0)
[2019-01-22] MEDS: VANCOMYCIN PER PHARMACY MC PRN ×3 (06:33→14:55)
--- NOTE | 2019-01-22 06:39 | NUR ---
Pharmacy Vancomycin Dosing Note S: Consulted to monitor and dose vancomycin started 01/19/19. O: ABIDA DE LEON is a 58 year old M with Cellulitis, . Other Antibiotics: AZTREONAM 1GM IV Q8H LABS: Last BUN: 13 Last Creatinine: 0.8 Creatinine Clearance: 93 mL/min Last WBC: 16.9 Last Procalcitonin: Tmax (past 24 hours): 99.8 Microbiology: I/O: 240- 5 VOIDS Drug Levels: Last Trough level: 12.2 on 01/22/19 at 0530 Last dose given 01/21/19 at 2235 Vancomycin Dosing: Dosing Weight: Actual Target Trough: 10-20 A: Based on: Trough, Actual Wt and CrCl P: 1. 01/22/19 Continue Vancomycin 1000 mg IV q8h 2. Follow up Trough level on 01/22/19 at 0530 3. Pharmacy will continue to monitor, follow and adjust therapy as needed. YAZMIN RUBIN RPH, 01/22/19 0639 Signed: 01/22/19 at 0640 by YAZMIN RUBIN RPH PHA
[2019-01-22 07:00] VITALS: BP 157/86
[2019-01-22] MEDS: AZTREONAM IV Push 1 GM VIAL. IVP SCH ×3 (07:21→21:50)
[2019-01-22] MEDS: VANCOMYCIN 1 GM in IV NORMAL SALINE 250ML 250 ML IV SCH ×3 (07:41→21:51)
[2019-01-22] MEDS: VITAMIN B12,B9,B6 COMPLEX 1 TABLET. PO SCH (08:54)
[2019-01-22] MEDS: MULTIVIT INFUSN,ADULT 4,VIT K 10 ML, THIAMINE INJ 100 MG, FOLIC ACID INJ 1 MG in IV NOR... IV SCH (08:54)
[2019-01-22] MEDS: oxyCODONE/APAP 5/325 1 TAB TABLET PO PRN (09:07)
--- NOTE | 2019-01-22 10:25 | PDOC ---
ORTHO PROGRESS NOTES Subjective He reports that he feels like his elbow and forearm swelling are much better. Vitals Vital Signs Date Time Temp Pulse Resp B/P (MAP) Pulse Ox O2 Delivery O2 Flow Rate FiO2 01/22/19 09:07 Room Air 01/22/19 07:00 98.0 79 18 157/86 (109) 93 98.0 01/21/19 09:13 8 Labs Laboratory Tests Test 01/21/19 04:40 01/22/19 05:30 Creatinine 0.8 mg/dL (0.7-1.3) 0.7 mg/dL (0.7-1.3) Estimated GFR (Cockcroft-Gault) 98.6 115.0 Vancomycin Level Trough 6.1 mcg/mL (10.0-20.0) 12.2 mcg/mL (10.0-20.0) Vancomycin Last Dose Date 01/20/19 01/21/19 Vancomycin Last Dose Time 1700 2200 Laboratory Tests Test 01/22/19 05:30 Creatinine 0.7 mg/dL (0.7-1.3) Estimated GFR (Cockcroft-Gault) 115.0 Vancomycin Level Trough 12.2 mcg/mL (10.0-20.0) Vancomycin Last Dose Date 01/21/19 Vancomycin Last Dose Time 2200 Notes He is awake and alert. Edema and cellulitis are improved at his left upper extremity. VAC is in place with a good seal. Assessment and Plan Given his soft tissue defect, I would recommend continued VAC treatment. I have asked the wound care team to assist with this. LISA SIEGEL II, MD Jan 22, 2019 10:25
[2019-01-22 11:00] VITALS: BP 148/80
--- NOTE | 2019-01-22 11:21 | PDOC ---
PROGRESS NOTES Chief Complaint Chief Complaint Left elbow cellulitis possible spider bite- elevate extremity, tight wrap. Ortho following . Cont empiric antibiotics 01/20 on mri moderate sized left elbow joint effusion. Degenerative signal changes are seen within the marrow involving the lateral humeral condyle. No occult fracture is seen. There is no MRI evidence of osteomyelitis involving the left elbow. No ligamentous or tendinous disruption is seen. Moderate degenerative changes are seen involving the left elbow joint. Sepsis - 2/2 cellulitis, given empiric fluids and antibiotics - aztreonam and vancomycin. MRSA nares COPD - stable,nebs prn Smoker - nicotine patch offered Macrocytosis - heavy ETOH use, CIWA protocol 36 minute patient exam, chart review and wound care.> 50% of time spent with exam, chart review, pt care coordination History of Present Illness History of Present Illness Mr. Cary is a 58-year-old male w/ PMHx COPD, smoker who p/w left arm pain and swelling, started over the last 4 days prior to admit. Sent to ED from urgent care for drainage, redness, swelling, warmth, and pain of left elbow. Was septic on admission 01/20: MRI confirmed complex fluid collection in elbow. To OR for I&D with ortho, has wound vac in place. POD #1, feeling a bit shaky and left elbow pain. States he drinks 4-5 beers usually and has been cutting back. Notes he has had withdrawal symptoms before. No SOB or CP. Cultures pending. Vitals Vitals Vital Signs Date Time Temp Pulse Resp B/P (MAP) Pulse Ox O2 Delivery O2 Flow Rate FiO2 01/22/19 11:00 98.2 80 18 148/80 (102) 94 Room Air 98.2 01/21/19 09:13 8 Physical Exam General: Alert, Oriented X3, Cooperative, mild distress Heart: Regular rate, Normal S1, Normal S2 Lungs: Clear Abdomen: Normal bowel sounds, Soft, No tenderness Extremities: No clubbing, No cyanosis, Normal pulses, Other (he has edema at hi s left forearm and hand) Skin: Other (thickened red skin to left arm, axillae to wrist, some drainage near elbow) Labs LABS MRI of the left elbow without contrast 01/20/2019 CLINICAL HISTORY: Left elbow abscess. TECHNIQUE: Unenhanced T1-weighted sagittal and axial and coronal and inversion recovery sagittal and axial and coronal images of the left elbow were obtained. FINDINGS: Comparison is made to radiographs of the left elbow dated 01/19/2019. Diffuse soft tissue swelling and edema is seen throughout the soft tissues of the left elbow. A complex fluid collection is seen within the subcutaneous fat posterior to the olecranon which measures 3.7 x 3.4 x 0.9 cm in craniocaudal, transverse and AP dimensions. This is consistent with the patient's history of an abscess. It is 4 mm deep to the skin surface. A second fluid collection is seen slightly medial and superior to this within the subcutaneous fat which measures 2.8 x 2.4 x 1.7 cm in transverse, craniocaudal and AP dimensions. This is 2 mm deep to the skin surface and would be consistent with patient's history of an abscess. It is difficult to determine if these fluid collections communicate with one another. No additional well-defined fluid collection is seen. There is a moderate sized left elbow joint effusion. Degenerative signal changes are seen within the marrow involving the lateral humeral condyle. No occult fracture is seen. There is no MRI evidence of osteomyelitis involving the left elbow. No ligamentous or tendinous disruption is seen. Moderate degenerative changes are seen involving the left elbow joint. IMPRESSION: Fluid collections are seen within the posterior soft tissues of the left elbow consistent with patient's history of abscesses as discussed above. Electronically signed by: Lev Helms MD (01/20/2019 12:43 PM) [facility] DICTATED and SIGNED BY: LEV HELMS MD DATE: 01/20/19 1243 Laboratory Tests Test 01/22/19 05:30 Creatinine 0.7 mg/dL (0.7-1.3) Estimated GFR (Cockcroft-Gault) 115.0 Vancomycin Level Trough 12.2 mcg/mL (10.0-20.0) Vancomycin Last Dose Date 01/21/19 Vancomycin Last Dose Time 2200 Assessment and Plan Assessmemt and Plan Problems Medical Problems: (1) Cellulitis of arm, left Status: Acute Comment Review of Relevant I have reviewed the following items pineda (where applicable) has been applied. Labs Laboratory Tests Test 01/21/19 04:40 01/22/19 05:30 Creatinine 0.8 mg/dL (0.7-1.3) 0.7 mg/dL (0.7-1.3) Estimated GFR (Cockcroft-Gault) 98.6 115.0 Vancomycin Level Trough 6.1 mcg/mL (10.0-20.0) 12.2 mcg/mL (10.0-20.0) Vancomycin Last Dose Date 01/20/19 01/21/19 Vancomycin Last Dose Time 1700 2200 Laboratory Tests Test 01/22/19 05:30 Creatinine 0.7 mg/dL (0.7-1.3) Estimated GFR (Cockcroft-Gault) 115.0 Vancomycin Level Trough 12.2 mcg/mL (10.0-20.0) Vancomycin Last Dose Date 01/21/19 Vancomycin Last Dose Time 2200 Medications Current Medications Vancomycin HCl (Vanco Per Pharmacy) 1 each PRN DAILY PRN MC SEE COMMENTS Last administered on 01/22/19at 06:33; Start 01/19/19 at 14:00 Vancomycin HCl 1.75 gm/Sodium Chloride 500 ml @ 250 mls/hr 1X ONCE IV Last administered on 01/19/19at 14:13; Start 01/19/19 at 14:00; Stop 01/19/19 at 15:59; Status DC Vancomycin HCl 1 gm/Sodium Chloride 250 ml @ 250 mls/hr Q12H IV Last administered on 01/20/19at 16:55; Start 01/20/19 at 05:00; Stop 01/21/19 at 06:05; Status DC Vancomycin HCl (Vancomycin Trough Level) 1 each 1X ONCE MC Last administered on 01/21/19at 04:30; Start 01/21/19 at 04:30; Stop 01/21/19 at 04:31; Status DC Fentanyl Citrate (Fentanyl 2ml Vial) 50 mcg PRN Q2HR PRN IVP PAIN; Start 01/19/19 at 16:30 Oxycodone/ Acetaminophen (Percocet 5/325) 1 tab PRN Q4HRS PRN PO PAIN Last administered on 01/22/19at 09:07; Start 01/19/19 at 16:30 Nicotine (Nicoderm Cq 21mg) 1 patch PRN DAILY PRN TD SMOKING CESSATION; Start 01/19/19 at 17:00 Nicotine Polacrilex (Nicorette Gum) 1 each PRN Q1HR PRN BC SMOKING CESSATION; Start 01/19/19 at 17:00 Zolpidem Tartrate (Ambien) 5 mg PRN QHS PRN PO INSOMNIA, MAY REPEAT IN 1HR Last administered on 01/21/19at 22:34; Start 01/19/19 at 17:00 Piperacillin Sod/ Tazobactam Sod (Zosyn Per Pharmacy) 1 each PRN DAILY PRN MC SEE COMMENTS; Start 01/19/19 at 17:00; Stop 01/19/19 at 17:10; Status DC Aztreonam (Azactam) 2 gm Q8HRS IVP ; Start 01/19/19 at 17:15; Status UNV Aztreonam (Azactam) 1 gm Q8HRS IVP Last administered on 01/22/19at 07:21; Start 01/19/19 at 18:00 Vitamin B Complex (Folbic Tablet) 1 tab DAILY PO Last administered on 01/22/19at 08:54; Start 01/20/19 at 09:00 Multivitamins 10 ml/Thiamine HCl 100 mg/Folic Acid 1 mg/Sodium Chloride 1,011.2 ml @ 100 mls/ hr DAILY IV Last administered on 01/22/19at 08:54; Start 01/20/19 at 12:00; Stop 01/24/19 at 19:07 Lorazepam (Ativan) 2 mg PRN Q1HR PRN PO For CIWA 8-14; Start 01/20/19 at 11:15 Lorazepam (Ativan Inj) 1 mg PRN Q1HR PRN IV For CIWA 8-14; Start 01/20/19 at 11:15 Diphenhydramine HCl (Benadryl) 25 mg PRN Q15MIN PRN IVP EPS symptoms 2'Haldol admin; Start 01/20/19 at 11:15 Clonidine HCl (Catapres) 0.1 mg PRN Q1HR PRN PO SBP > 180 or DBP > 100, MRX3; Start 01/20/19 at 11:15 Vancomycin HCl 1 gm/Sodium Chloride 250 ml @ 250 mls/hr Q8H IV Last administered on 01/22/19at 07:41; Start 01/21/19 at 06:00 Vancomycin HCl (Vancomycin Trough Level) 1 each 1X ONCE MC Last administered on 01/22/19at 05:30; Start 01/22/19 at 05:30; Stop 01/22/19 at 05:31; Status DC Propofol 20 ml @ As Directed STK-MED ONCE IV ; Start 01/21/19 at 07:31; Stop 01/21/19 at 07:32; Status DC Lidocaine HCl (Lidocaine Pf 2% Vial) 5 ml STK-MED ONCE .ROUTE ; Start 01/21/19 at 07:31; Stop 01/21/19 at 07:32; Status DC Dexamethasone Sodium Phosphate (Decadron) 4 mg STK-MED ONCE .ROUTE ; Start 01/21/19 at 07:31; Stop 01/21/19 at 07:32; Status DC Ondansetron HCl (Zofran) 4 mg STK-MED ONCE .ROUTE ; Start 01/21/19 at 07:31; Stop 01/21/19 at 07:32; Status DC Fentanyl Citrate (Fentanyl 2ml Vial) 100 mcg STK-MED ONCE .ROUTE ; Start 01/21/19 at 07:32; Stop 01/21/19 at 07:32; Status DC Ondansetron HCl (Zofran) 4 mg PRN Q6HRS PRN IV NAUSEA/VOMITING; Start 01/21/19 at 08:00; Stop 01/21/19 at 18:00; Status DC Fentanyl Citrate (Fentanyl 2ml Vial) 25 mcg PRN Q5MIN PRN IV MILD PAIN 1-3; Start 01/21/19 at 08:00; Stop 01/21/19 at 18:00; Status DC Fentanyl Citrate (Fentanyl 2ml Vial) 50 mcg PRN Q5MIN PRN IV MODERATE TO SEVERE PAIN; Start 01/21/19 at 08:00; Stop 01/21/19 at 18:00; Status DC Morphine Sulfate (Morphine Sulfate) 1 mg PRN Q10MIN PRN IV SEVERE PAIN 7-10; Start 01/21/19 at 08:00; Stop 01/21/19 at 18:00; Status DC Ringer's Solution 1,000 ml @ 30 mls/hr Q24H IV ; Start 01/21/19 at 07:48; Stop 01/21/19 at 09:40; Status DC Lidocaine HCl (Xylocaine-Mpf 1% 2ml Vial) 2 ml PRN 1X PRN ID PRIOR TO IV START; Start 01/21/19 at 08:00; Stop 01/21/19 at 18:00; Status DC Hydromorphone HCl (Dilaudid) 0.5 mg PRN Q10MIN PRN IV SEV PAIN, Second choice; Start 01/21/19 at 08:00; Stop 01/21/19 at 18:00; Status DC Prochlorperazine Edisylate (Compazine) 5 mg PACU PRN PRN IV NAUSEA, MRX1; Start 01/21/19 at 08:00; Stop 01/21/19 at 18:00; Status DC Midazolam HCl (Versed) 2 mg STK-MED ONCE .ROUTE ; Start 01/21/19 at 07:57; Stop 01/21/19 at 07:57; Status DC Ketorolac Tromethamine (Toradol 30mg Vial) 30 mg STK-MED ONCE .ROUTE ; Start 01/21/19 at 08:36; Stop 01/21/19 at 08:36; Status DC Sevoflurane (Ultane) 30 ml STK-MED ONCE IH ; Start 01/21/19 at 09:44; Stop 01/21/19 at 09:44; Status DC Active Scripts Active No Active Prescriptions or Reported Medications Vitals/I & O Vital Sign - Last 24 Hours 01/21/19 01/21/19 01/21/19 01/21/19 15:06 19:35 20:00 23:00 Temp 98.0 97.9 98.1 98.0 97.9 98.1 Pulse 71 68 68 Resp 18 18 18 B/P (MAP) 124/70 (88) 135/70 (91) 135/74 (94) Pulse Ox 95 96 96 O2 Delivery Room Air Room Air Room Air Room Air 01/22/19 01/22/19 01/22/19 01/22/19 03:44 07:00 08:00 09:07 Temp 98.1 98.0 98.1 98.0 Pulse 67 79 Resp 18 18 B/P (MAP) 115/66 (82) 157/86 (109) Pulse Ox 95 93 O2 Delivery Room Air Room Air Room Air Room Air 01/22/19 01/22/19 10:07 11:00 Temp 98.2 98.2 Pulse 80 Resp 18 B/P (MAP) 148/80 (102) Pulse Ox 94 O2 Delivery Room Air Room Air Intake and Output 01/21/19 01/21/19 01/22/19 15:00 23:00 07:00 Intake Total 1040 ml 250 ml 440 ml Output Total 10 ml 800 ml 350 ml Balance 1030 ml -550 ml 90 ml CHRIS DURAN MD Jan 22, 2019 11:21
--- NOTE | 2019-01-22 12:45 | NUR ---
SS following for discharge planning. SS reviewed pt chart. Pt is self pay pt. HCFS following for self pay status. Pt is from home and is currently on room air. SS will continue to follow for discharge planning.
[2019-01-22 15:00] VITALS: BP 137/80
[2019-01-22] MEDS: fentaNYL PF VIAL 100 MCG/2 ML VIAL IVP PRN ×2 (16:18→21:56)
--- NOTE | 2019-01-22 16:41 | NUR ---
wound care patient seen per wound care consult/wound vac dressing change. dressing removed at this time, the wound was cleaned, measured and pictured. patient has some red induration around the bety-wound. tendon exposed in the wound, the tendon was covered with a contact layer and 1 piece of foam dressing applied to the wound bed, the wound vac was tracked to the left lower arm, a good seal was obtained. wound care will f/u on Tuesday01/24/2019 for wound vac dressing change.
[2019-01-22 19:00] VITALS: BP 141/78
[2019-01-22] MEDS: ZOLPIDEM 5 MG TABLET. PO PRN (21:56)
[2019-01-22 23:00] VITALS: BP 121/70
[2019-01-23 03:00] VITALS: BP 159/92
[2019-01-23] MEDS: AZTREONAM IV Push 1 GM VIAL. IVP SCH ×3 (05:36→22:09)
[2019-01-23] MEDS: VANCOMYCIN 1 GM in IV NORMAL SALINE 250ML 250 ML IV SCH ×3 (05:37→22:09)
[2019-01-23] MEDS: oxyCODONE/APAP 5/325 1 TAB TABLET PO PRN (06:07)
[2019-01-23 07:00] VITALS: BP 147/84
[2019-01-23 07:22] LABS: ALBUMIN 2.9 g/dL (3.4-5.0); ALBUMIN/GLOBULIN RATIO 0.7 (1.0-1.7); CALCIUM 9.1 mg/dL (8.5-10.1); CREATININE 0.8 mg/dL (0.7-1.3); GFR 98.6; TOTAL BILIRUBIN 0.6 mg/dL (0.2-1.0); TOTAL PROTEIN 6.8 g/dL (6.4-8.2)
[2019-01-23 07:23] LABS: BASO # 0.1 x10^3/uL (0.0-0.2); BASO % 1 % (0-3); EOS # 0.2 x10^3/uL (0.0-0.7); EOS % 2 % (0-3); HEMATOCRIT 36.7 % (39.0-53.0); HEMOGLOBIN 12.6 g/dL (13.0-17.5); LYMPH # 2.5 x10^3/uL (1.0-4.8); LYMPH % 25 % (24-48); MEAN CORPUSCULAR HEMOGLOBIN 36 pg (25-35); MEAN CORPUSCULAR HGB CONC 34 g/dL (31-37); MEAN CORPUSCULAR VOLUME 104 fL (79-100); MONO # 0.9 x10^3/uL (0.0-1.1); MONO % 9 % (0-9); NEUT # 6.4 x10^3/uL (1.8-7.7); NEUT % 64 % (31-73); PLATELET COUNT 244 x10^3/uL (140-400); RED BLOOD COUNT 3.52 x10^6/uL (4.30-5.70); RED CELL DISTRIBUTION WIDTH 12.2 % (11.5-14.5)
[2019-01-23] MEDS ORDERED: chlordiazePOXIDE HCL 25 MG CAPSULE PO PRN (08:30)
[2019-01-23] MEDS ORDERED: ACETAMINOPHEN 500 MG TABLET PO PRN (08:30)
[2019-01-23] MEDS ORDERED: ZOLPIDEM 5 MG TABLET. PO PRN (08:30)
[2019-01-23] MEDS ORDERED: ONDANSETRON PF 4 MG/2 ML VIAL. IVP PRN (08:30)
--- NOTE | 2019-01-23 08:54 | NUR ---
IP: Pt is mrsa screen + requiring contact precautions. Recommend initiation of Nozin/CHG decolonization.
[2019-01-23] MEDS: MULTIVIT INFUSN,ADULT 4,VIT K 10 ML, THIAMINE INJ 100 MG, FOLIC ACID INJ 1 MG in IV NOR... IV SCH (09:09)
[2019-01-23] MEDS: VITAMIN B12,B9,B6 COMPLEX 1 TABLET. PO SCH (09:09)
[2019-01-23] MEDS ORDERED: MULT1TAB52 PO (09:22)
[2019-01-23] MEDS ORDERED: CLIN300C8 PO (09:22)
[2019-01-23] MEDS ORDERED: CHLO25CA9 PO (09:22)
[2019-01-23] MEDS ORDERED: THIA500T PO (09:22)
--- NOTE | 2019-01-23 09:25 | PDOC3 ---
Discharge Summary Visit Information Date of Admission: Jan 19, 2019 Date of Discharge: Jan 23, 2019 Admitting Diagnosis Comment: LEft elbow cellulitis with indwelling wound vac (s/p I and D) Alcoholism Final Diagnosis Problems Medical Problems: (1) Cellulitis of arm, left Status: Acute Brief Hospital Course Allergies Allergies Coded Allergies Type Severity Reaction Last Updated Verified Penicillins Allergy Intermediate hives 01/20/16 Yes Vital Signs Vital Signs Date Time Temp Pulse Resp B/P (MAP) Pulse Ox O2 Delivery O2 Flow Rate FiO2 01/23/19 07:07 Room Air 01/23/19 07:00 98.4 63 18 147/84 (105) 96 98.4 Lab Results Laboratory Tests Test 01/21/19 11:26 01/22/19 05:30 01/23/19 06:25 Nasal Screen MRSA (PCR) Positive (Negative) Creatinine 0.7 mg/dL (0.7-1.3) 0.8 mg/dL (0.7-1.3) Estimated GFR (Cockcroft-Gault) 115.0 98.6 Vancomycin Level Trough 12.2 mcg/mL (10.0-20.0) Vancomycin Last Dose Date 01/21/19 Vancomycin Last Dose Time 2200 White Blood Count 10.0 x10^3/uL (4.0-11.0) Red Blood Count 3.52 x10^6/uL (4.30-5.70) Hemoglobin 12.6 g/dL (13.0-17.5) Hematocrit 36.7 % (39.0-53.0) Mean Corpuscular Volume 104 fL (79-100) Mean Corpuscular Hemoglobin 36 pg (25-35) Mean Corpuscular Hemoglobin Concent 34 g/dL (31-37) Red Cell Distribution Width 12.2 % (11.5-14.5) Platelet Count 244 x10^3/uL (140-400) Neutrophils (%) (Auto) 64 % (31-73) Lymphocytes (%) (Auto) 25 % (24-48) Monocytes (%) (Auto) 9 % (0-9) Eosinophils (%) (Auto) 2 % (0-3) Basophils (%) (Auto) 1 % (0-3) Neutrophils # (Auto) 6.4 x10^3/uL (1.8-7.7) Lymphocytes # (Auto) 2.5 x10^3/uL (1.0-4.8) Monocytes # (Auto) 0.9 x10^3/uL (0.0-1.1) Eosinophils # (Auto) 0.2 x10^3/uL (0.0-0.7) Basophils # (Auto) 0.1 x10^3/uL (0.0-0.2) Sodium Level 144 mmol/L (136-145) Potassium Level 4.0 mmol/L (3.5-5.1) Chloride Level 108 mmol/L (98-107) Carbon Dioxide Level 24 mmol/L (21-32) Anion Gap 12 (6-14) Blood Urea Nitrogen 13 mg/dL (8-26) BUN/Creatinine Ratio 16 (6-20) Glucose Level 95 mg/dL (70-99) Calcium Level 9.1 mg/dL (8.5-10.1) Total Bilirubin 0.6 mg/dL (0.2-1.0) Aspartate Amino Transf (AST/SGOT) 57 U/L (15-37) Alanine Aminotransferase (ALT/SGPT) 57 U/L (16-63) Alkaline Phosphatase 92 U/L (46-116) Total Protein 6.8 g/dL (6.4-8.2) Albumin 2.9 g/dL (3.4-5.0) Albumin/Globulin Ratio 0.7 (1.0-1.7) Laboratory Tests Test 01/23/19 06:25 White Blood Count 10.0 x10^3/uL (4.0-11.0) Red Blood Count 3.52 x10^6/uL (4.30-5.70) Hemoglobin 12.6 g/dL (13.0-17.5) Hematocrit 36.7 % (39.0-53.0) Mean Corpuscular Volume 104 fL (79-100) Mean Corpuscular Hemoglobin 36 pg (25-35) Mean Corpuscular Hemoglobin Concent 34 g/dL (31-37) Red Cell Distribution Width 12.2 % (11.5-14.5) Platelet Count 244 x10^3/uL (140-400) Neutrophils (%) (Auto) 64 % (31-73) Lymphocytes (%) (Auto) 25 % (24-48) Monocytes (%) (Auto) 9 % (0-9) Eosinophils (%) (Auto) 2 % (0-3) Basophils (%) (Auto) 1 % (0-3) Neutrophils # (Auto) 6.4 x10^3/uL (1.8-7.7) Lymphocytes # (Auto) 2.5 x10^3/uL (1.0-4.8) Monocytes # (Auto) 0.9 x10^3/uL (0.0-1.1) Eosinophils # (Auto) 0.2 x10^3/uL (0.0-0.7) Basophils # (Auto) 0.1 x10^3/uL (0.0-0.2) Sodium Level 144 mmol/L (136-145) Potassium Level 4.0 mmol/L (3.5-5.1) Chloride Level 108 mmol/L (98-107) Carbon Dioxide Level 24 mmol/L (21-32) Anion Gap 12 (6-14) Blood Urea Nitrogen 13 mg/dL (8-26) Creatinine 0.8 mg/dL (0.7-1.3) Estimated GFR (Cockcroft-Gault) 98.6 BUN/Creatinine Ratio 16 (6-20) Glucose Level 95 mg/dL (70-99) Calcium Level 9.1 mg/dL (8.5-10.1) Total Bilirubin 0.6 mg/dL (0.2-1.0) Aspartate Amino Transf (AST/SGOT) 57 U/L (15-37) Alanine Aminotransferase (ALT/SGPT) 57 U/L (16-63) Alkaline Phosphatase 92 U/L (46-116) Total Protein 6.8 g/dL (6.4-8.2) Albumin 2.9 g/dL (3.4-5.0) Albumin/Globulin Ratio 0.7 (1.0-1.7) Brief Hospital Course Mr. Cary is a 58 old white male who drinks heavy alcohol, comes in bec of left elbow cellulitis, needed I and D by ortho (Dr Bradford) and now has indwellling wound vac, Self pay, NOn febrile, non toxic appearing, intra op cxs pending and he does not want to wait for the cxs, PCN wilfredo listed, was getting vanc and aztreonam by hospitalist, HOME today with wound vac on PO clinda and some librax and nsaid otc, Counselled on his etohism, Dw SW and RN and pt Instructed to come back if gets worse dc 32 mins consults; Ortho Proc: left elbow I and D Discharge Information Condition at Discharge: Improved, Stable Follow Up: Weeks (pcp if gets worse) Disposition/Orders: D/C to Home Scheduled Clindamycin Hcl (Clindamycin Hcl) 300 Mg Capsule, 300 MG PO QID for left elbow cellulitis for 10 Days, #40 Prescribed by: VLAD TURNER on 01/23/19921 Multivitamin (Multivitamins) 1 Each Tablet, 1 TAB PO DAILY for alcoholsim, #90 Ref 3 Prescribed by: VLAD TURNER on 01/23/19921 Thiamine Hcl (Thiamine Hcl) 500 Mg Tablet, 500 MG PO DAILY for mvi for 60 Days, #60 Prescribed by: VLAD TURNER on 01/23/19921 Scheduled PRN Chlordiazepoxide Hcl (Chlordiazepoxide Hcl) 25 Mg Capsule, 25 MG PO PRN Q6HRS PRN for ANXIETY / AGITATION, #30 Prescribed by: VLAD TURNER on 01/23/19921 VLAD TURNER MD Jan 23, 2019 09:25
[2019-01-23 11:00] VITALS: BP 159/72
--- NOTE | 2019-01-23 13:00 | PDOC ---
ORTHO PROGRESS NOTES Subjective Pain about the same, better since surgery Vitals Vital Signs Date Time Temp Pulse Resp B/P (MAP) Pulse Ox O2 Delivery O2 Flow Rate FiO2 01/23/19 11:00 98.4 63 18 159/72 (101) 96 Room Air 98.4 Labs Laboratory Tests Test 01/22/19 05:30 01/23/19 06:25 Creatinine 0.7 mg/dL (0.7-1.3) 0.8 mg/dL (0.7-1.3) Estimated GFR (Cockcroft-Gault) 115.0 98.6 Vancomycin Level Trough 12.2 mcg/mL (10.0-20.0) Vancomycin Last Dose Date 01/21/19 Vancomycin Last Dose Time 2200 White Blood Count 10.0 x10^3/uL (4.0-11.0) Red Blood Count 3.52 x10^6/uL (4.30-5.70) Hemoglobin 12.6 g/dL (13.0-17.5) Hematocrit 36.7 % (39.0-53.0) Mean Corpuscular Volume 104 fL (79-100) Mean Corpuscular Hemoglobin 36 pg (25-35) Mean Corpuscular Hemoglobin Concent 34 g/dL (31-37) Red Cell Distribution Width 12.2 % (11.5-14.5) Platelet Count 244 x10^3/uL (140-400) Neutrophils (%) (Auto) 64 % (31-73) Lymphocytes (%) (Auto) 25 % (24-48) Monocytes (%) (Auto) 9 % (0-9) Eosinophils (%) (Auto) 2 % (0-3) Basophils (%) (Auto) 1 % (0-3) Neutrophils # (Auto) 6.4 x10^3/uL (1.8-7.7) Lymphocytes # (Auto) 2.5 x10^3/uL (1.0-4.8) Monocytes # (Auto) 0.9 x10^3/uL (0.0-1.1) Eosinophils # (Auto) 0.2 x10^3/uL (0.0-0.7) Basophils # (Auto) 0.1 x10^3/uL (0.0-0.2) Sodium Level 144 mmol/L (136-145) Potassium Level 4.0 mmol/L (3.5-5.1) Chloride Level 108 mmol/L (98-107) Carbon Dioxide Level 24 mmol/L (21-32) Anion Gap 12 (6-14) Blood Urea Nitrogen 13 mg/dL (8-26) BUN/Creatinine Ratio 16 (6-20) Glucose Level 95 mg/dL (70-99) Calcium Level 9.1 mg/dL (8.5-10.1) Total Bilirubin 0.6 mg/dL (0.2-1.0) Aspartate Amino Transf (AST/SGOT) 57 U/L (15-37) Alanine Aminotransferase (ALT/SGPT) 57 U/L (16-63) Alkaline Phosphatase 92 U/L (46-116) Total Protein 6.8 g/dL (6.4-8.2) Albumin 2.9 g/dL (3.4-5.0) Albumin/Globulin Ratio 0.7 (1.0-1.7) Laboratory Tests Test 01/23/19 06:25 White Blood Count 10.0 x10^3/uL (4.0-11.0) Red Blood Count 3.52 x10^6/uL (4.30-5.70) Hemoglobin 12.6 g/dL (13.0-17.5) Hematocrit 36.7 % (39.0-53.0) Mean Corpuscular Volume 104 fL (79-100) Mean Corpuscular Hemoglobin 36 pg (25-35) Mean Corpuscular Hemoglobin Concent 34 g/dL (31-37) Red Cell Distribution Width 12.2 % (11.5-14.5) Platelet Count 244 x10^3/uL (140-400) Neutrophils (%) (Auto) 64 % (31-73) Lymphocytes (%) (Auto) 25 % (24-48) Monocytes (%) (Auto) 9 % (0-9) Eosinophils (%) (Auto) 2 % (0-3) Basophils (%) (Auto) 1 % (0-3) Neutrophils # (Auto) 6.4 x10^3/uL (1.8-7.7) Lymphocytes # (Auto) 2.5 x10^3/uL (1.0-4.8) Monocytes # (Auto) 0.9 x10^3/uL (0.0-1.1) Eosinophils # (Auto) 0.2 x10^3/uL (0.0-0.7) Basophils # (Auto) 0.1 x10^3/uL (0.0-0.2) Sodium Level 144 mmol/L (136-145) Potassium Level 4.0 mmol/L (3.5-5.1) Chloride Level 108 mmol/L (98-107) Carbon Dioxide Level 24 mmol/L (21-32) Anion Gap 12 (6-14) Blood Urea Nitrogen 13 mg/dL (8-26) Creatinine 0.8 mg/dL (0.7-1.3) Estimated GFR (Cockcroft-Gault) 98.6 BUN/Creatinine Ratio 16 (6-20) Glucose Level 95 mg/dL (70-99) Calcium Level 9.1 mg/dL (8.5-10.1) Total Bilirubin 0.6 mg/dL (0.2-1.0) Aspartate Amino Transf (AST/SGOT) 57 U/L (15-37) Alanine Aminotransferase (ALT/SGPT) 57 U/L (16-63) Alkaline Phosphatase 92 U/L (46-116) Total Protein 6.8 g/dL (6.4-8.2) Albumin 2.9 g/dL (3.4-5.0) Albumin/Globulin Ratio 0.7 (1.0-1.7) Notes He is awake and alert. Overall his upper extremity on the left side is much improved compared to prior surgery. He still has some surrounding erythema. Assessment and Plan Gram-positive cocci on cultures so far. I did discuss his care with the wound care team, I think one more night on IV antibiotics and likely wound VAC approval tomorrow would be in his best interest and home tomorrow with him. LISA SIEGEL II, MD Jan 23, 2019 13:00
[2019-01-23 15:00] VITALS: BP 151/80
[2019-01-23] MEDS: VANCOMYCIN PER PHARMACY MC PRN (18:37)
[2019-01-23 19:00] VITALS: BP 150/77
[2019-01-23] MEDS: LACTOBACILLUS RHAMNOSUS GG 1 CAPSULE. PO SCH (21:05)
[2019-01-23 23:00] VITALS: BP 133/62
[2019-01-24 03:00] VITALS: BP 135/74
[2019-01-24] MEDS: AZTREONAM IV Push 1 GM VIAL. IVP SCH (06:01)
[2019-01-24] MEDS: VANCOMYCIN 1 GM in IV NORMAL SALINE 250ML 250 ML IV SCH (06:04)
[2019-01-24 07:00] VITALS: BP 166/75
--- NOTE | 2019-01-24 09:18 | PDOC ---
PROGRESS NOTES Chief Complaint Chief Complaint Left elbow cellulitis s/p I and D with wound vac GPC wound MRSA nares COPD - stable,nebs prn Smoker - nicotine patch offered Macrocytosis - heavy ETOH use, History of Present Illness History of Present Illness ortho wanted one more day IV abx - vanc GPC on wound cx Self pay Needs a bath No withdrawal sxs Wants to go home PLAn: BActrim on RX I did consult ID on day of possible dc -see if my abx of choice for dc and duration is ok (I wrote for Bactrim DS x 10 days BID) We are waiting for jovani wound vac HE wants to go home today Librium etc on chart Ok not to hang banana bag anymore dw RN violeta Vitals Vitals Vital Signs Date Time Temp Pulse Resp B/P (MAP) Pulse Ox O2 Delivery O2 Flow Rate FiO2 01/24/19 07:00 97.5 63 18 166/75 (105) 94 Room Air 97.5 Physical Exam General: Alert, Oriented X3, Cooperative, mild distress Heart: Regular rate, Normal S1, Normal S2 Lungs: Clear Abdomen: Normal bowel sounds, Soft, No tenderness Extremities: No clubbing, No cyanosis, Normal pulses, Other (he has edema at his left forearm and hand) Skin: Other (thickened red skin to left arm, axillae to wrist, some drainage near elbow) Review of Systems Review of Systems neg 14 pt reviewed with him Assessment and Plan Assessmemt and Plan Problems Medical Problems: (1) Cellulitis of arm, left Status: Acute Comment Review of Relevant I have reviewed the following items pineda (where applicable) has been applied. Labs Laboratory Tests Test 01/23/19 06:25 White Blood Count 10.0 x10^3/uL (4.0-11.0) Red Blood Count 3.52 x10^6/uL (4.30-5.70) Hemoglobin 12.6 g/dL (13.0-17.5) Hematocrit 36.7 % (39.0-53.0) Mean Corpuscular Volume 104 fL (79-100) Mean Corpuscular Hemoglobin 36 pg (25-35) Mean Corpuscular Hemoglobin Concent 34 g/dL (31-37) Red Cell Distribution Width 12.2 % (11.5-14.5) Platelet Count 244 x10^3/uL (140-400) Neutrophils (%) (Auto) 64 % (31-73) Lymphocytes (%) (Auto) 25 % (24-48) Monocytes (%) (Auto) 9 % (0-9) Eosinophils (%) (Auto) 2 % (0-3) Basophils (%) (Auto) 1 % (0-3) Neutrophils # (Auto) 6.4 x10^3/uL (1.8-7.7) Lymphocytes # (Auto) 2.5 x10^3/uL (1.0-4.8) Monocytes # (Auto) 0.9 x10^3/uL (0.0-1.1) Eosinophils # (Auto) 0.2 x10^3/uL (0.0-0.7) Basophils # (Auto) 0.1 x10^3/uL (0.0-0.2) Sodium Level 144 mmol/L (136-145) Potassium Level 4.0 mmol/L (3.5-5.1) Chloride Level 108 mmol/L (98-107) Carbon Dioxide Level 24 mmol/L (21-32) Anion Gap 12 (6-14) Blood Urea Nitrogen 13 mg/dL (8-26) Creatinine 0.8 mg/dL (0.7-1.3) Estimated GFR (Cockcroft-Gault) 98.6 BUN/Creatinine Ratio 16 (6-20) Glucose Level 95 mg/dL (70-99) Calcium Level 9.1 mg/dL (8.5-10.1) Total Bilirubin 0.6 mg/dL (0.2-1.0) Aspartate Amino Transf (AST/SGOT) 57 U/L (15-37) Alanine Aminotransferase (ALT/SGPT) 57 U/L (16-63) Alkaline Phosphatase 92 U/L (46-116) Total Protein 6.8 g/dL (6.4-8.2) Albumin 2.9 g/dL (3.4-5.0) Albumin/Globulin Ratio 0.7 (1.0-1.7) Microbiology 01/21/19 Anaerobic/Aerobic Culture, Resulted Pending 01/21/19 Anaerobic Culture Result 1 (CARY), Resulted Pending 01/21/19 Aerobic Culture - Preliminary, Resulted 01/21/19 Aerobic Culture Result 1 (CARY) - Preliminary, Resulted 01/21/19 Gram Stain - Final, Resulted 01/21/19 Gram Stain Result 1 (CARY) - Final, Resulted 01/21/19 Gram Stain Result 2 (CARY) - Final, Resulted Medications Current Medications Vancomycin HCl (Vanco Per Pharmacy) 1 each PRN DAILY PRN MC SEE COMMENTS Last administered on 01/23/19at 18:37; Start 01/19/19 at 14:00 Vancomycin HCl 1.75 gm/Sodium Chloride 500 ml @ 250 mls/hr 1X ONCE IV Last administered on 01/19/19at 14:13; Start 01/19/19 at 14:00; Stop 01/19/19 at 15:59; Status DC Vancomycin HCl 1 gm/Sodium Chloride 250 ml @ 250 mls/hr Q12H IV Last adm inistered on 01/20/19at 16:55; Start 01/20/19 at 05:00; Stop 01/21/19 at 06:05; Status DC Vancomycin HCl (Vancomycin Trough Level) 1 each 1X ONCE MC Last administered on 01/21/19at 04:30; Start 01/21/19 at 04:30; Stop 01/21/19 at 04:31; Status DC Fentanyl Citrate (Fentanyl 2ml Vial) 50 mcg PRN Q2HR PRN IVP PAIN Last administered on 01/22/19 21:56; Start 01/19/19 at 16:30 Oxycodone/ Acetaminophen (Percocet 5/325) 1 tab PRN Q4HRS PRN PO MODERATE PAIN, SEVERE PAIN Last administered on 01/23/19 06:07; Start 01/19/19 at 16:30 Nicotine (Nicoderm Cq 21mg) 1 patch PRN DAILY PRN TD SMOKING CESSATION 1ST CHOICE; Start 01/19/19 at 17:00 Nicotine Polacrilex (Nicorette Gum) 1 each PRN Q1HR PRN BC SMOKING CESSATION 2ND CHOICE; Start 01/19/19 at 17:00 Zolpidem Tartrate (Ambien) 5 mg PRN QHS PRN PO INSOMNIA, MAY REPEAT IN 1HR Last administered on 01/22/19at 21:56; Start 01/19/19 at 17:00 Piperacillin Sod/ Tazobactam Sod (Zosyn Per Pharmacy) 1 each PRN DAILY PRN MC SEE COMMENTS; Start 01/19/19 at 17:00; Stop 01/19/19 at 17:10; Status DC Aztreonam (Azactam) 2 gm Q8HRS IVP ; Start 01/19/19 at 17:15; Status UNV Aztreonam (Azactam) 1 gm Q8HRS IVP Last administered on 01/24/19at 06:01; Start 01/19/19 at 18:00 Vitamin B Complex (Folbic Tablet) 1 tab DAILY PO Last administered on 01/23/19at 09:09; Start 01/20/19 at 09:00 Multivitamins 10 ml/Thiamine HCl 100 mg/Folic Acid 1 mg/Sodium Chloride 1,011.2 ml @ 100 mls/ hr DAILY IV Last administered on 01/23/19at 09:09; Start 01/20/19 at 12:00; Stop 01/24/19 at 19:07 Lorazepam (Ativan) 2 mg PRN Q1HR PRN PO For CIWA 8-14; Start 01/20/19 at 11:15 Lorazepam (Ativan Inj) 1 mg PRN Q1HR PRN IV For CIWA 8-14; Start 01/20/19 at 11:15 Diphenhydramine HCl (Benadryl) 25 mg PRN Q15MIN PRN IVP EPS symptoms 2'Haldol admin; Start 01/20/19 at 11:15 Clonidine HCl (Catapres) 0.1 mg PRN Q1HR PRN PO SBP > 180 or DBP > 100, MRX3; Start 01/20/19 at 11:15 Vancomycin HCl 1 gm/Sodium Chloride 250 ml @ 250 mls/hr Q8H IV Last administered on 01/24/19at 06:04; Start 01/21/19 at 06:00 Vancomycin HCl (Vancomycin Trough Level) 1 each 1X ONCE MC Last administered on 01/22/19at 05:30; Start 01/22/19 at 05:30; Stop 01/22/19 at 05:31; Status DC Propofol 20 ml @ As Directed STK-MED ONCE IV ; Start 01/21/19 at 07:31; Stop 01/21/19 at 07:32; Status DC Lidocaine HCl (Lidocaine Pf 2% Vial) 5 ml STK-MED ONCE .ROUTE ; Start 01/21/19 at 07:31; Stop 01/21/19 at 07:32; Status DC Dexamethasone Sodium Phosphate (Decadron) 4 mg STK-MED ONCE .ROUTE ; Start 01/21/19 at 07:31; Stop 01/21/19 at 07:32; Status DC Ondansetron HCl (Zofran) 4 mg STK-MED ONCE .ROUTE ; Start 01/21/19 at 07:31; Stop 01/21/19 at 07:32; Status DC Fentanyl Citrate (Fentanyl 2ml Vial) 100 mcg STK-MED ONCE .ROUTE ; Start 01/21/19 at 07:32; Stop 01/21/19 at 07:32; Status DC Ondansetron HCl (Zofran) 4 mg PRN Q6HRS PRN IV NAUSEA/VOMITING; Start 01/21/19 at 08:00; Stop 01/21/19 at 18:00; Status DC Fentanyl Citrate (Fentanyl 2ml Vial) 25 mcg PRN Q5MIN PRN IV MILD PAIN 1-3; Start 01/21/19 at 08:00; Stop 01/21/19 at 18:00; Status DC Fentanyl Citrate (Fentanyl 2ml Vial) 50 mcg PRN Q5MIN PRN IV MODERATE TO SEVERE PAIN; Start 01/21/19 at 08:00; Stop 01/21/19 at 18:00; Status DC Morphine Sulfate (Morphine Sulfate) 1 mg PRN Q10MIN PRN IV SEVERE PAIN 7-10; Start 01/21/19 at 08:00; Stop 01/21/19 at 18:00; Status DC Ringer's Solution 1,000 ml @ 30 mls/hr Q24H IV ; Start 01/21/19 at 07:48; Stop 01/21/19 at 09:40; Status DC Lidocaine HCl (Xylocaine-Mpf 1% 2ml Vial) 2 ml PRN 1X PRN ID PRIOR TO IV START; Start 01/21/19 at 08:00; Stop 01/21/19 at 18:00; Status DC Hydromorphone HCl (Dilaudid) 0.5 mg PRN Q10MIN PRN IV SEV PAIN, Second choice; Start 01/21/19 at 08:00; Stop 01/21/19 at 18:00; Status DC Prochlorperazine Edisylate (Compazine) 5 mg PACU PRN PRN IV NAUSEA, MRX1; Start 01/21/19 at 08:00; Stop 01/21/19 at 18:00; Status DC Midazolam HCl (Versed) 2 mg STK-MED ONCE .ROUTE ; Start 01/21/19 at 07:57; Stop 01/21/19 at 07:57; Status DC Ketorolac Tromethamine (Toradol 30mg Vial) 30 mg STK-MED ONCE .ROUTE ; Start 01/21/19 at 08:36; Stop 01/21/19 at 08:36; Status DC Sevoflurane (Ultane) 30 ml STK-MED ONCE IH ; Start 01/21/19 at 09:44; Stop 01/21/19 at 09:44; Status DC Chlordiazepoxide (Librium) 25 mg PRN Q6HRS PRN PO ANXIETY / AGITATION; Start 01/23/19 at 08:30 Zolpidem Tartrate (Ambien) 5 mg PRN QHS PRN PO INSOMNIA; Start 01/23/19 at 08:30; Status Cancel Acetaminophen (Tylenol) 500 mg PRN Q6HRS PRN PO MILD PAIN / TEMP; Start 01/23/19 at 08:30 Ondansetron HCl (Zofran) 4 mg PRN Q6HRS PRN IVP NAUSEA/VOMITING; Start 01/23/19 at 08:30 Lactobacillus Rhamnosus (Culturelle) 1 cap BID PO Last administered on 01/23/19at 21:05; Start 01/23/19 at 21:00 Active Scripts Active Thiamine Hcl 500 Mg Tablet 500 Mg PO DAILY 60 Days Multivitamins (Multivitamin) 1 Each Tablet 1 Tab PO DAILY Clindamycin Hcl 300 Mg Capsule 300 Mg PO QID 10 Days Chlordiazepoxide Hcl 25 Mg Capsule 25 Mg PO PRN Q6HRS PRN Vitals/I & O Vital Sign - Last 24 Hours 01/23/19 01/23/19 01/23/19 01/23/19 11:00 15:00 19:00 19:50 Temp 98.4 98.0 98.0 98.4 98.0 98.0 Pulse 63 57 60 Resp 18 18 18 B/P (MAP) 159/72 (101) 151/80 (103) 150/77 (101) Pulse Ox 96 97 99 O2 Delivery Room Air Room Air Room Air 10/8/19 10/9/19 10/9/19 23:00 03:00 07:00 Temp 98.1 98.1 97.5 98.1 98.1 97.5 Pulse 66 57 63 Resp 16 18 18 B/P (MAP) 133/62 (85) 135/74 (94) 166/75 (105) Pulse Ox 96 97 94 O2 Delivery Room Air Intake and Output 01/23/19 01/23/19 01/24/19 15:00 23:00 07:00 Intake Total 480 ml Output Total 200 ml Balance 280 ml VLAD TURNER MD Jan 24, 2019 09:18
[2019-01-24] MEDS: VITAMIN B12,B9,B6 COMPLEX 1 TABLET. PO SCH (09:40)
[2019-01-24] MEDS: LACTOBACILLUS RHAMNOSUS GG 1 CAPSULE. PO SCH (09:40)
[2019-01-24 11:00] VITALS: BP 142/77
--- NOTE | 2019-01-24 11:14 | PDOC ---
ORTHO PROGRESS NOTES Subjective Patient states feeling some pain with wound vac in place. Post-op Day: 3 Procedure I&D of subcutaneous tissue left elbow with wound vac placement. Vitals Vital Signs Date Time Temp Pulse Resp B/P (MAP) Pulse Ox O2 Delivery O2 Flow Rate FiO2 01/24/19 07:00 97.5 63 18 166/75 (105) 94 Room Air 97.5 Labs Laboratory Tests Test 01/23/19 06:25 White Blood Count 10.0 x10^3/uL (4.0-11.0) Red Blood Count 3.52 x10^6/uL (4.30-5.70) Hemoglobin 12.6 g/dL (13.0-17.5) Hematocrit 36.7 % (39.0-53.0) Mean Corpuscular Volume 104 fL (79-100) Mean Corpuscular Hemoglobin 36 pg (25-35) Mean Corpuscular Hemoglobin Concent 34 g/dL (31-37) Red Cell Distribution Width 12.2 % (11.5-14.5) Platelet Count 244 x10^3/uL (140-400) Neutrophils (%) (Auto) 64 % (31-73) Lymphocytes (%) (Auto) 25 % (24-48) Monocytes (%) (Auto) 9 % (0-9) Eosinophils (%) (Auto) 2 % (0-3) Basophils (%) (Auto) 1 % (0-3) Neutrophils # (Auto) 6.4 x10^3/uL (1.8-7.7) Lymphocytes # (Auto) 2.5 x10^3/uL (1.0-4.8) Monocytes # (Auto) 0.9 x10^3/uL (0.0-1.1) Eosinophils # (Auto) 0.2 x10^3/uL (0.0-0.7) Basophils # (Auto) 0.1 x10^3/uL (0.0-0.2) Sodium Level 144 mmol/L (136-145) Potassium Level 4.0 mmol/L (3.5-5.1) Chloride Level 108 mmol/L (98-107) Carbon Dioxide Level 24 mmol/L (21-32) Anion Gap 12 (6-14) Blood Urea Nitrogen 13 mg/dL (8-26) Creatinine 0.8 mg/dL (0.7-1.3) Estimated GFR (Cockcroft-Gault) 98.6 BUN/Creatinine Ratio 16 (6-20) Glucose Level 95 mg/dL (70-99) Calcium Level 9.1 mg/dL (8.5-10.1) Total Bilirubin 0.6 mg/dL (0.2-1.0) Aspartate Amino Transf (AST/SGOT) 57 U/L (15-37) Alanine Aminotransferase (ALT/SGPT) 57 U/L (16-63) Alkaline Phosphatase 92 U/L (46-116) Total Protein 6.8 g/dL (6.4-8.2) Albumin 2.9 g/dL (3.4-5.0) Albumin/Globulin Ratio 0.7 (1.0-1.7) Notes awake and alert with wound care here and ID. Assessment and Plan POD # 3 I&D left elbow with wound vac motor and sensation intact distally. Wound vac removed per ID and wound care here to redress until another [facility] wound vac is available. Per ID will switch to oral antibiotics and ok to discharge home. F/u in clinic in 10-14 days call for appt. MELANIE MTZ APRN Jan 24, 2019 11:14
[2019-01-24] MEDS ORDERED: DAPTOmycin (GENERIC) IVPB 410 MG in IV NORMAL SALINE 50ML 50 ML IV ONE (11:30)
--- NOTE | 2019-01-24 11:30 | PDOC ---
Infectious Disease Note Vital Sign Vital Signs Vital Signs Date Time Temp Pulse Resp B/P (MAP) Pulse Ox O2 Delivery O2 Flow Rate FiO2 01/24/19 07:00 97.5 63 18 166/75 (105) 94 Room Air 97.5 Labs Micro Microbiology 01/21/19 Anaerobic/Aerobic Culture, Resulted Pending 01/21/19 Anaerobic Culture Result 1 (CARY), Resulted Pending 01/21/19 Aerobic Culture - Preliminary, Resulted 01/21/19 Aerobic Culture Result 1 (CARY) - Preliminary, Resulted 01/21/19 Gram Stain - Final, Resulted 01/21/19 Gram Stain Result 1 (CARY) - Final, Resulted 01/21/19 Gram Stain Result 2 (CARY) - Final, Resulted Objective Assessment Left elbow infection s/p I and D 01/21 - no bone or joint. + abscess MRSA PCN allergy can tolerated amox with Benadryl Leukocytosis -better Plan Plan of Care Dose Dapto times one D/w Vanc and aztreoman Home with Zyvox for 10 days CBC next week ID can f/u in [facility] next week to yunior D/w Dr. Martin D/w nursing # [id number] FREDDIE LOPEZ MD Jan 24, 2019 11:30
--- NOTE | 2019-01-24 12:39 | NUR ---
SS following up with discharge planning. Script received for Zyvox PO. SS contacted Zyvox assistance program, , and made request for assistance. SS phoned and faxed script to Zyvox assistance at fax [phone]. SS was provided with record ID# [id number]. SS was notified that medication would be mailed to pt by UPS overnight and pt would receive it tomorrow, 01/25/2019. Pt and pt's RN notified.
--- NOTE | 2019-01-24 15:07 | NUR ---
Wound Care: Follow up wound care to apply wound vac. Wound pictured and measurements in chart for DC today. Packed with 1 piece of black foam, bridged to LFA. Periwound red and indurated. Discussed home wound vac use, troubleshooting, and wound care. Pt will follow up in clinic weekly for assessment and dressing management. present during education, stated understanding. No other open areas noted on head to toe assessment. DC wound care instructions included in paperwork. [employer] rental agreement signed, copy given to pt.
--- NOTE | 2019-01-24 17:07 | NUR ---
Pt discharged home with self care. Discharge instructions provided. Pt verbalized understanding. IV removed. Pt ambulated to main entrance and was secured in vehicle with .
--- NOTE | 2019-01-24 19:03 | CONS ---
DATE OF CONSULTATION: 01/24/2019 ROOM: 444. REQUESTING PHYSICIAN: Melvi Corrales MD. REASON FOR CONSULTATION: Intraoperative ____ cultures. 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 He states he bumped his left elbow on the mirror of a car on the Tuesday, the and then approximately the or so noticed that his arm developed a small white pustule that he squeezed and he got some yellow fluid out, but then over the course of several days, it increased in size and worsened and became more painful. He was initially sent to urgent care, but was sent to [facility]. He had a white count of 17.7. Cultures were taken. He was taken to the operating room on the by Dr. Martin, underwent irrigation and debridement of skin and subcutaneous tissue, excision of a left elbow abscess and wound and a wound VAC was placed. He had been placed on vancomycin. Cultures have turned positive now for MRSA. I did confirm the MRSA culture from 01/20 with [facility] this morning. Currently, the patient is lying in bed. He is hoping to go home. He denies any current fevers or chills or sweats. He has no nausea, vomiting or diarrhea. He has no rashes. No dysuria, frequency or urgency, and states that he is feeling somewhat better, still has a little bit of pain in his arm. PAST MEDICAL HISTORY: Positive for COPD. PAST SURGICAL HISTORY: Positive for tonsillectomy. ALLERGIES: LISTED PENICILLIN. He states he can take amoxicillin with Benadryl. SOCIAL HISTORY: He is a smoker. He has alcohol occasionally. 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 Denies any other substances. No history. No travel history. No STDs. FAMILY HISTORY: Positive for CVA and nonalcoholic, steatosis in his mother. CURRENT MEDICATIONS: Include IV vancomycin. Additionally, he received some aztreonam, nicotine patch, Lactobacillus, clonidine, Librium, p.r.n. medications. PHYSICAL EXAMINATION: VITAL SIGNS: He is afebrile, temperature is 97.5, pulse 63, respirations 18, blood pressure 166/75, satting 94% on room air. CONSTITUTIONAL: He is sitting upright. He is cooperative, in no acute distress. HEENT: Pupils equal and reactive. Normal conjunctivae. Oral cavity, pharynx is clear. NECK: Supple, no JVD. LUNGS: Clear to auscultation bilaterally. HEART: S1, S2. ABDOMEN: Soft, nontender, nondistended, no guarding or rebound. EXTREMITIES: No clubbing or cyanosis. No gross edema. His left elbow on the medial aspect has some mild erythema. There is an open wound approximately 2 cm x 1 cm or so, it does track. There is no purulence. There is no warmth. SKIN: Warm to touch without signs of rash. NEUROLOGIC: He is nonfocal. PSYCHIATRIC: Affect is appropriate. LABORATORY DATA: From the 8th, white count 10, hemoglobin 12.6, platelets 244. Creatinine 0.8. Essentially normal liver function study tests, mild AST elevation of 57. MRSA screen is positive. Cultures as reviewed with [facility] as mentioned above. IMPRESSION: 1. Left elbow infection, status post irrigation and debridement on the 6th, no bone or joint is involved. I did discuss the case with Dr. Martin who confirms this. 2. Methicillin-resistant Staphylococcus aureus. 3. PENICILLIN ALLERGY, but has tolerated amoxicillin with Benadryl. 4. Leukocytosis, that is improved. RECOMMENDATIONS: We will dose daptomycin x 1. Discontinue vancomycin and aztreonam. He can be discharged home with Zyvox for 10 days. Obtain a CBC in a week. ID can follow him in the wound care center in the next week, but they will call to evaluate. This was discussed with Dr. Martin and discussed with wound care. Discussed with nursing. Thank you for allowing me to participate in this patient's care. If you have any questions, please do not hesitate to contact me. FREDDIE LOPEZ MD DR: [id number]/girma JOB#: [id number] / [id number]
== END 2019-01-24 16:30 | disposition home or self-care (01) | DRG 854 ==
LOC: ER 13:03 → 4 NORTH 14:32
PROVIDERS: ADMIT Internal Medicine; ATTEND Internal Medicine
PROC: 0JBH0ZZ Excision of Left Lower Arm Subcutaneous Tissue and Fascia, Open Approach (ICD-10-PCS; principal; 2019-01-21 08:00)
DX: A41.9 Sepsis, unspecified organism (principal); L02.414 Cutaneous abscess of left upper limb; L03.114 Cellulitis of left upper limb; F17.210 Nicotine dependence, cigarettes, uncomplicated; B95.62 Methicillin resistant Staphylococcus aureus infection as the cause of diseases classified elsewhere; M19.90 Unspecified osteoarthritis, unspecified site; J44.9 Chronic obstructive pulmonary disease, unspecified; Z82.3 Family history of stroke; Z88.0 Allergy status to penicillin; Z90.49 Acquired absence of other specified parts of digestive tract; Z79.899 Other long term (current) drug therapy
CPT/HCPCS: 36415; 73080; 73221; 80053; 80202; 82565; 82607; 85007; 85025; 87070; 87071; 87075; 87186; 87641; 96365; A7015; J0878; J1100; J1885; J2001; J2250; J2405; J2704; J3010; J3370; J3490; J7030; J7040; J7050; 97116; 97530; 99285-25; A4461; G0378